=== PATIENT | female | born 1955 | race Two or more races ===

== ENCOUNTER 2020-04-12 11:33 | Inpatient (IN) | payer MEDICARE, OTHER ==
[~2020-04-12] VITALS: Ht 132.1 cm; Wt 38.1 kg
--- NOTE | 2020-04-12 11:45 | NUR ---
ED Nurse Note: Pt walked in from home c/o chills, weakness and diarrhea x 1 week s/p coronary ablation. Pt is a patient of Dr. Chambers and has had loss of appetite x 4 days. Respirations even and unlabored on room air. Vitals stable as documented. A+Ox4, speaking in complete sentences.
--- NOTE | 2020-04-12 12:01 | Emergency Room Report ---
History of Present Illness General Chief Complaint: General Complaint Source: Patient (Keyonna Dobbs M.D.) Present Illness HPI Patient is a 65-year-old female past medical history of atrial fibrillation status post recent ablation on Xarelto who presents to the ER complaining of generalized weakness, abdominal pain, lower back pain and watery diarrhea. Patient states the symptoms of been present for a week. She denies any fever but complains of chills. She denies any chest pain, shortness of breath or cough. She complains of nausea but denies any vomiting. She denies any dysuria or hematuria. Patient states that her primary care physician Dr. Jamil referred her to the emergency room. 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: No (Keyonna Dobbs M.D.) Patient History Reviewed Nursing Documentation: PMH: Agreed; PSxH: Agreed (Keyonna Dobbs M.D.) Nursing Documentation-PMH Past Medical History: No History, Except For (Keyonna Dobbs M.D.) Review of Systems All Other Systems: negative except mentioned in HPI (Keyonna Dobbs M.D.) Physical Exam Vital Signs Date Time Temp Pulse Resp B/P (MAP) Pulse Ox O2 Delivery O2 Flow Rate FiO2 04/12/20 11:38 98.2 87 15 113/74 (87) 97 Room Air Sp02 EP Interpretation: reviewed, normal General Appearance: no apparent distress, alert, GCS 15, non-toxic, thin Head: normocephalic, atraumatic Eyes: bilateral eye normal inspection, bilateral eye PERRL ENT: dry mucus membranes Neck: full range of motion, supple/symm/no masses Respiratory: chest non-tender, rales, speaking full sentences Cardiovascular #1: regular rate, rhythm, no edema Gastrointestinal: other - Mild diffuse abdominal pain with no guarding or rebound Rectal: deferred Genitourinary: no CVA tenderness Musculoskeletal: back normal, normal range of motion, no calf tenderness, gait/station normal, non-tender Neurologic: loom mechanic III-XII nml as tested, oriented x3 Psychiatric: no suicidal/homicidal ideation Skin: no rash Lymphatic: no adenopathy (Keyonna Dobbs M.D.) Medical Decision Making Diagnostic Impression: Primary Impression: CHF (congestive heart failure) Additional Impressions: Diarrhea Weakness ER Course Patient pancultured. Patient's vital signs are stable. Patient's chest x-ray consistent with CHF. Patient had diffuse abdominal pain with diarrhea. Patient pending CT abdomen pelvis. I paged the patient's primary care physician Dr.Re torres. I explained the work-up to him so far. Patient is pending CT results. Patient signed out to Dr. Harris at 1400 to follow-up on the CT results and admission. Laboratory Tests Test 04/12/20 11:55 04/12/20 12:05 04/13/20 04:45 White Blood Count 4.6 K/UL (4.8-10.8) L Pending Red Blood Count 4.65 M/UL (4.20-5.40) Pending Hemoglobin 15.3 G/DL (12.0-16.0) Pending Hematocrit 46.1 % (37.0-47.0) Pending Mean Corpuscular Volume 99 FL (80-99) Pending Mean Corpuscular Hemoglobin 32.8 PG (27.0-31.0) H Pending Mean Corpuscular Hemoglobin Concent 33.1 G/DL (32.0-36.0) Pending Red Cell Distribution Width 12.4 % (11.6-14.8) Pending Platelet Count 143 K/UL (150-450) L Pending Mean Platelet Volume 6.6 FL (6.5-10.1) Pending Neutrophils (%) (Auto) 61.5 % (45.0-75.0) Pending Lymphocytes (%) (Auto) 19.7 % (20.0-45.0) L Pending Monocytes (%) (Auto) 15.0 % (1.0-10.0) H Pending Eosinophils (%) (Auto) 1.5 % (0.0-3.0) Pending Basophils (%) (Auto) 2.3 % (0.0-2.0) H Pending Prothrombin Time 12.1 SEC (9.30-11.50) H Prothrombin Time INR 1.1 (0.9-1.1) Activated Partial Thromboplast Time 35 SEC (23-33) H Sodium Level 135 MMOL/L (136-145) L Pending Potassium Level 3.6 MMOL/L (3.5-5.1) Pending Chloride Level 100 MMOL/L (98-107) Pending Carbon Dioxide Level 27 MMOL/L (21-32) Pending Anion Gap 8 mmol/L (5-15) Blood Urea Nitrogen 6 mg/dL (7-18) L Pending Creatinine 0.9 MG/DL (0.55-1.30) Pending Estimated Glomerular Filtration Rate > 60 mL/min (>60) Pending Glucose Level 90 MG/DL (74-106) Pending Lactic Acid Level 0.80 mmol/L (0.4-2.0) Calcium Level 8.8 MG/DL (8.5-10.1) Pending Magnesium Level 2.1 MG/DL (1.8-2.4) Total Bilirubin 1.6 MG/DL (0.2-1.0) H Pending Direct Bilirubin 0.3 MG/DL (0.0-0.3) Aspartate Amino Transferase (AST) 37 U/L (15-37) Pending Alanine Aminotransferase (ALT) 38 U/L (12-78) Pending Alkaline Phosphatase 57 U/L (46-116) Pending Troponin I 0.001 ng/mL (0.000-0.056) Pending Pro-B-Type Natriuretic Peptide 1047 pg/mL (0-125) H Total Protein 8.3 G/DL (6.4-8.2) H Pending Albumin 3.7 G/DL (3.4-5.0) Pending Globulin 4.6 g/dL Pending Albumin/Globulin Ratio 0.8 (1.0-2.7) L Urine Color Pale yellow Urine Appearance Clear Urine pH 6 (4.5-8.0) Urine Specific [place] 1.005 (1.005-1.035) Urine Protein Negative (NEGATIVE) Urine Glucose (UA) Negative (NEGATIVE) Urine Ketones Negative (NEGATIVE) Urine Blood 3+ (NEGATIVE) H Urine Nitrite Negative (NEGATIVE) Urine Bilirubin Negative (NEGATIVE) Urine Urobilinogen Normal MG/DL (0.0-1.0) Urine Leukocyte Esterase Negative (NEGATIVE) Urine RBC 0-2 /HPF (0 - 2) Urine WBC 0-2 /HPF (0 - 2) Urine Squamous Epithelial Cells Occasional /LPF Urine Bacteria Occasional /HPF (NONE) Microbiology Date/Time Source Procedure Growth Status 04/12/20 11:55 Nasopharynx SARS-CoV-2 RdRp Gene Assay - Final Complete (Keyonna Dobbs M.D.) ER Course Assumed care of the patient from the previous provider at approximately 1430. Please refer to initial note for full history and physical exam. Briefly, 65-year-old female with recent ablation for atrial fibrillation presents with diffuse fatigue, diarrhea. Concern for CHF exacerbation. Patient receiving Lasix. At this time of signout we are awaiting CT results. It shows mild evidence of colitis and interstitial edema. Patient will be admitted to her PMD, Dr. Jamil, for further care. She is in stable condition. Laboratory Tests Test 04/12/20 11:55 04/12/20 12:05 White Blood Count 4.6 K/UL (4.8-10.8) L Red Blood Count 4.65 M/UL (4.20-5.40) Hemoglobin 15.3 G/DL (12.0-16.0) Hematocrit 46.1 % (37.0-47.0) Mean Corpuscular Volume 99 FL (80-99) Mean Corpuscular Hemoglobin 32.8 PG (27.0-31.0) H Mean Corpuscular Hemoglobin Concent 33.1 G/DL (32.0-36.0) Red Cell Distribution Width 12.4 % (11.6-14.8) Platelet Count 143 K/UL (150-450) L Mean Platelet Volume 6.6 FL (6.5-10.1) Neutrophils (%) (Auto) 61.5 % (45.0-75.0) Lymphocytes (%) (Auto) 19.7 % (20.0-45.0) L Monocytes (%) (Auto) 15.0 % (1.0-10.0) H Eosinophils (%) (Auto) 1.5 % (0.0-3.0) Basophils (%) (Auto) 2.3 % (0.0-2.0) H Prothrombin Time 12.1 SEC (9.30-11.50) H Prothrombin Time INR 1.1 (0.9-1.1) Activated Partial Thromboplast Time 35 SEC (23-33) H Sodium Level 135 MMOL/L (136-145) L Potassium Level 3.6 MMOL/L (3.5-5.1) Chloride Level 100 MMOL/L (98-107) Carbon Dioxide Level 27 MMOL/L (21-32) Anion Gap 8 mmol/L (5-15) Blood Urea Nitrogen 6 mg/dL (7-18) L Creatinine 0.9 MG/DL (0.55-1.30) Estimated Glomerular Filtration Rate > 60 mL/min (>60) Glucose Level 90 MG/DL (74-106) Lactic Acid Level 0.80 mmol/L (0.4-2.0) Calcium Level 8.8 MG/DL (8.5-10.1) Magnesium Level 2.1 MG/DL (1.8-2.4) Total Bilirubin 1.6 MG/DL (0.2-1.0) H Direct Bilirubin 0.3 MG/DL (0.0-0.3) Aspartate Amino Transferase (AST) 37 U/L (15-37) Alanine Aminotransferase (ALT) 38 U/L (12-78) Alkaline Phosphatase 57 U/L (46-116) Troponin I 0.001 ng/mL (0.000-0.056) Pro-B-Type Natriuretic Peptide 1047 pg/mL (0-125) H Total Protein 8.3 G/DL (6.4-8.2) H Albumin 3.7 G/DL (3.4-5.0) Globulin 4.6 g/dL Albumin/Globulin Ratio 0.8 (1.0-2.7) L Urine Color Pale yellow Urine Appearance Clear Urine pH 6 (4.5-8.0) Urine Specific [place] 1.005 (1.005-1.035) Urine Protein Negative (NEGATIVE) Urine Glucose (UA) Negative (NEGATIVE) Urine Ketones Negative (NEGATIVE) Urine Blood 3+ (NEGATIVE) H Urine Nitrite Negative (NEGATIVE) Urine Bilirubin Negative (NEGATIVE) Urine Urobilinogen Normal MG/DL (0.0-1.0) Urine Leukocyte Esterase Negative (NEGATIVE) Urine RBC 0-2 /HPF (0 - 2) Urine WBC 0-2 /HPF (0 - 2) Urine Squamous Epithelial Cells Occasional /LPF Urine Bacteria Occasional /HPF (NONE) Microbiology Date/Time Source Procedure Growth Status 04/12/20 11:55 Nasopharynx SARS-CoV-2 RdRp Gene Assay - Final Complete (Frederick Harris MD) EKG Diagnostic Results Troponin ordered: Yes When was troponin ordered?: Apr 12, 2020 EKG Time: 12:14 EP Interpretation: Keyonna Dobbs MD Rate: normal - 86 bpm Rhythm: NSR, other - Sinus rhythm with PVC right axis deviation, incomplete right bundle vania block ST Segments: no acute changes ASA given to the pt in ED: No (Keyonna Dobbs M.D.) Rhythm Strip Diag. Results Rhythm Strip Time: 12:18 EP Interpretation: yes - Keyonna Dobbs MD Rate: 87 bpm Rhythm: NSR, no PVC's, no ectopy (Keyonna Dobbs M.D.) Chest X-Ray Diagnostic Results Chest X-Ray Diagnostic Results : Chest X-Ray Ordered: Yes # of Views/Limited/Complete: 1 View Indication: Shortness of Breath Interpretation: no consolidation, no effusion, no pneumothorax, other - Bilateral vascular congestion Impression: Other - Bilateral vascular congestion Electronically Signed by: Electronically signed by Dr. Frederick Harris MD (Frederick Harris MD) CT/MRI/US Diagnostic Results CT/MRI/US Diagnostic Results : Impression Final Report EXAM: CT Abdomen and Pelvis Without Intravenous Contrast CLINICAL HISTORY: PAIN TECHNIQUE: Axial computed tomographyimages of the abdomen and pelviswithout intravenous contrast. Sagittal and coronal reformatted imageswere created and reviewed. CTDI is 2.9 mGyand DLP is 130.20 mGycm. One or more of the following dose reduction techniqueswere used: automated exposure control, adjustment of the mAand/or kVaccording to patient size, use of iterative reconstruction technique. COMPARISON: No relevant prior studies available. FINDINGS: Lung bases: Subtle peripheral hazydensities in bilateral lower lobes. Heart:Cardiomegaly. ABDOMEN: Liver:Unremarkable. Gallbladder and bile ducts:Unremarkable. No calcified stones. No ductal dilation. Pancreas:Unremarkable. No ductal dilation. Spleen:Unremarkable. No splenomegaly. Adrenals:Unremarkable. No mass. Kidneys and ureters:Unremarkable. No obstructing stones. No hydronephrosis. Stomach and bowel: Mild diffuse colonicwall thickening, concerning for a coli tis. No abnormally distended loops of small bowel. GE junction and stomach appear unremarkable. PELVIS: Appendix:No findings to suggest acute appendicitis. Bladder:Unremarkable. No stones. Reproductive: The uterus and ovaries have an unremarkable noncontrast appearance. ABDOMEN and PELVIS: Intraperitoneal space:Unremarkable. No free air. No significant fluid collection. Bones/joints:No acute fracture. No dislocation. Soft tissues:Unremarkable. Vasculature:Unremarkable. No abdominal aortic aneurysm. Lymph nodes:Unremarkable. No enlarged lymph nodes. IMPRESSION: 1. Mild diffuse colonicwall thickening, concerning for a colitis. No adjacent inflammatorystranding, free air, or fluid collection. No bowel obstruction. 2. Cardiomegaly. 3. Subtle peripheral hazydensities in bilateral lower lobes. This is nonspecific and mayrepresent mild pulmonaryinterstitial edema or pneumonitis. Radiologist: Jt Marley MD Electronically Signed: 04/12/20 14:35 (Frederick Harris MD) Last Vital Signs Date Time Temp Pulse Resp B/P (MAP) Pulse Ox O2 Delivery O2 Flow Rate FiO2 04/12/20 11:38 98.2 87 15 113/74 (87) 97 Room Air (Keyonna Dobbs M.D.) Disposition: ADMITTED INPATIENT Condition: Stable Referrals: Flako Jamil MD (PCP) Additional Instructions: Please note that this report is being documented using DRAGON technology. This can lead to erroneous entry secondary to incorrect interpretation by the dictating instrument. Keyonna Dobbs M.D. Apr 12, 2020 12:00 Frederick Harris MD Apr 12, 2020 15:01
[2020-04-12 12:22] VITALS: BP 124/77
[2020-04-12 12:29] LABS: BASOPHILS % (AUTO) 2.3 % (0.0-2.0); EOSINOPHILS % (AUTO) 1.5 % (0.0-3.0); HEMATOCRIT 46.1 % (37.0-47.0); HEMOGLOBIN 15.3 G/DL (12.0-16.0); LYMPHOCYTES % (AUTO) 19.7 % (20.0-45.0); MEAN CORPUSCULAR VOLUME 99 FL (80-99); NEUTROPHILS % (AUTO) 61.5 % (45.0-75.0); PLATELET COUNT 143 K/UL (150-450); RED BLOOD COUNT 4.65 M/UL (4.20-5.40); RED CELL DISTRIBUTION WIDTH 12.4 % (11.6-14.8); WHITE BLOOD COUNT 4.6 K/UL (4.8-10.8)
[2020-04-12 12:30] LABS: APPEARANCE,URINE CLEAR; BILIRUBIN, URINE NEGATIVE (NEGATIVE); COLOR,URINE PALE YELLOW; GLUCOSE, URINE (UA) NEGATIVE (NEGATIVE); KETONES,URINE NEGATIVE (NEGATIVE); LEUKOCYTE ESTERASE ,URINE NEGATIVE (NEGATIVE); NITRITE,URINE NEGATIVE (NEGATIVE); PH,URINE 6 (4.5-8.0); PROTEIN,URINE NEGATIVE (NEGATIVE); UROBILINOGEN,URINE NORMAL MG/DL (0.0-1.0)
[2020-04-12 12:34] LABS: INR 1.1 (0.9-1.1)
[2020-04-12 12:41] LABS: ANION GAP 8 mmol/L (5-15); BLOOD UREA NITROGEN 6 mg/dL (7-18); CALCIUM 8.8 MG/DL (8.5-10.1); CARBON DIOXIDE 27 MMOL/L (21-32); CHLORIDE 100 MMOL/L (98-107); CREATININE 0.9 MG/DL (0.55-1.30); POTASSIUM 3.6 MMOL/L (3.5-5.1); SODIUM 135 MMOL/L (136-145)
[2020-04-12 12:56] LABS: ALANINE AMINOTRANSFERASE 38 U/L (12-78); ALBUMIN 3.7 G/DL (3.4-5.0); ALBUMIN/GLOBULIN RATIO 0.8 (1.0-2.7); ALKALINE PHOSPHATASE 57 U/L (46-116); ASPARTATE AMINO TRANSFERASE 37 U/L (15-37); BILIRUBIN,TOTAL 1.6 MG/DL (0.2-1.0)
[2020-04-12 12:57] LABS: BILIRUBIN,DIRECT 0.3 MG/DL (0.0-0.3)
--- NOTE | 2020-04-12 13:10 | NUR ---
ED Nurse Note: pt in radiology
--- NOTE | 2020-04-12 13:20 | NUR ---
ED Nurse Note: pt back from radiology. no acute distress noted.
--- NOTE | 2020-04-12 13:39 | Diagnostic Imaging Report ---
EXAM: XR Chest, 1 View CLINICAL HISTORY: PAIN TECHNIQUE: Frontal view of the chest. COMPARISON: No relevant prior studies available. FINDINGS: Lungs: Pulmonary vascular congestion and possible mild perihilar pulmonary edema. No focal consolidation. Pleural space: Unremarkable. The costophrenic angles are sharp. No visible pneumothorax. Heart: Cardiomegaly. Mediastinum: Unremarkable. Bones/joints: Unremarkable. Tubes, lines and devices: Telemetry leads overlie the thorax. IMPRESSION: 1. Pulmonary vascular congestion and possible mild perihilar pulmonary edema. 2. Cardiomegaly.
[2020-04-12] MEDS: Aspirin Baby 81mg ORAL ONE ×2 (14:00→14:23)
[2020-04-12 14:20] VITALS: BP 131/74
--- NOTE | 2020-04-12 14:33 | NUR ---
ED Nurse Note: pt did not want to take aspirin as she is on xarelto. ED MD Aware. He said to hold aspirin.
--- NOTE | 2020-04-12 14:35 | Diagnostic Imaging Report ---
EXAM: CT Abdomen and Pelvis Without Intravenous Contrast CLINICAL HISTORY: PAIN TECHNIQUE: Axial computed tomography images of the abdomen and pelvis without intravenous contrast. Sagittal and coronal reformatted images were created and reviewed. CTDI is 2.9 mGy and DLP is 130.20 mGy-cm. One or more of the following dose reduction techniques were used: automated exposure control, adjustment of the mA and/or kV according to patient size, use of iterative reconstruction technique. COMPARISON: No relevant prior studies available. FINDINGS: Lung bases: Subtle peripheral hazy densities in bilateral lower lobes. Heart: Cardiomegaly. ABDOMEN: Liver: Unremarkable. Gallbladder and bile ducts: Unremarkable. No calcified stones. No ductal dilation. Pancreas: Unremarkable. No ductal dilation. Spleen: Unremarkable. No splenomegaly. Adrenals: Unremarkable. No mass. Kidneys and ureters: Unremarkable. No obstructing stones. No hydronephrosis. Stomach and bowel: Mild diffuse colonic wall thickening, concerning for a colitis. No abnormally distended loops of small bowel. GE junction and stomach appear unremarkable. PELVIS: Appendix: No findings to suggest acute appendicitis. Bladder: Unremarkable. No stones. Reproductive: The uterus and ovaries have an unremarkable noncontrast appearance. ABDOMEN and PELVIS: Intraperitoneal space: Unremarkable. No free air. No significant fluid collection. Bones/joints: No acute fracture. No dislocation. Soft tissues: Unremarkable. Vasculature: Unremarkable. No abdominal aortic aneurysm. Lymph nodes: Unremarkable. No enlarged lymph nodes. IMPRESSION: 1. Mild diffuse colonic wall thickening, concerning for a colitis. No adjacent inflammatory stranding, free air, or fluid collection. No bowel obstruction. 2. Cardiomegaly. 3. Subtle peripheral hazy densities in bilateral lower lobes. This is nonspecific and may represent mild pulmonary interstitial edema or pneumonitis.
--- NOTE | 2020-04-12 16:02 | NUR ---
ED Nurse Note: Report given to ORQUIDEA Vasquez on 2E
--- NOTE | 2020-04-12 16:10 | NUR ---
ED Nurse Note: pt transferred safely to 2E on the monitor. Pt transferred with all belongings including 99$ valdivia and cell phone.
[2020-04-12] MEDS ORDERED: XARELTO10 MG ORAL (16:39)
[2020-04-12 17:33] VITALS: BP 101/60
[2020-04-12] MEDS: D5 1/2NS 1,000 ML IV SCH (18:21)
[2020-04-12] MEDS: Xarelto 10mg tab ORAL SCH (18:24)
--- NOTE | 2020-04-12 19:36 | NUR ---
NURSE HAND-OFF REPORT: Important Events on Shift: Admitted patient, NPO x meds, Flagyl tid, pain management, nausea medication prn, IV hydration. Patient s/p cardiac ablation approx. one week ago. Consults [facility]. Gadiel Collins. Patient Status: Stable Diet: NPO x meds. Pending Orders: am labs Pending Results/Labs:am. labs Pending MD notification:N/A Latest Vital Signs: Temperature 98.1 , Pulse 96 , B/P 101 /60 , Respiratory Rate 19 , O2 SAT 94 , Room Air, O2 Flow Rate . Vital Sign Comment: Stable, low blood pressure. Hold IV lasix if SBP<150. EKG Rhythm: Sinus Rhythm Rhythm change?: N MD Notified?: - MD Response: Latest Beauchamp Fall Score: 20 Fall Risk: Low Risk Safety Measures: Call light Within Reach, Bed Alarm Zone 2, Side Rails Side Rails x2, Bed position Low and Locked. Fall Precautions: Report given to Lavinia Cali RN.
--- NOTE | 2020-04-12 19:54 | NUR ---
NURSE NOTES: Received patient in bed, awake, alert, oriented x4, able to make he needs known, IV site is clean dry and intact, patient is able to ambulate with steady gate, patient is NPO except meds, call light is within reach, bed is lowered, locked, alarm is on, will continue to monitor for comfort and safety.
[2020-04-12 20:00] VITALS: BP 118/74
--- NOTE | 2020-04-12 20:08 | Infectious Diseases Prog Note ---
Assessment/Plan Problems: (1) S/P ablation of atrial fibrillation Assessment & Plan: now with chills , rule out sepsis , will start vancomycin and cefepime empirically pending blood culture from ED (2) Chills Assessment & Plan: Sepsis VS COVID 19 viral infection , send PCR test for COVID to confirm, and start vancomycin with cefepime empirically pending blood culture . place patient in enhanced droplets isolation (3) Diarrhea Assessment & Plan: Bacterial VS viral , send stool culture, continue metronidazole pending C diff toxin , screening for COVID (4) Weakness Assessment & Plan: suspect due to the above Subjective Allergies: Coded Allergies: No Known Allergies (Unverified , 04/12/20) Objective Last 24 Hour Vital Signs Date Time Temp Pulse Resp B/P (MAP) Pulse Ox O2 Delivery O2 Flow Rate FiO2 04/12/20 17:33 98.1 96 19 101/60 (74) 94 04/12/20 17:15 89 04/12/20 16:10 97.9 84 16 139/71 99 Room Air 04/12/20 14:20 97.6 92 15 131/74 98 Room Air 04/12/20 12:22 98.2 108 15 124/77 97 Room Air 04/12/20 11:45 81 18 Room Air 04/12/20 11:38 98.2 87 15 113/74 (87) 97 Room Air Height (Feet): 4 Height (Inches): 8.00 Weight (Pounds): 85 Microbiology Date/Time Source Procedure Growth Status 04/12/20 11:55 Nasopharynx SARS-CoV-2 RdRp Gene Assay - Final Complete Laboratory Tests Test 04/12/20 11:55 04/12/20 12:05 White Blood Count 4.6 K/UL (4.8-10.8) L Red Blood Count 4.65 M/UL (4.20-5.40) Hemoglobin 15.3 G/DL (12.0-16.0) Hematocrit 46.1 % (37.0-47.0) Mean Corpuscular Volume 99 FL (80-99) Mean Corpuscular Hemoglobin 32.8 PG (27.0-31.0) H Mean Corpuscular Hemoglobin Concent 33.1 G/DL (32.0-36.0) Red Cell Distribution Width 12.4 % (11.6-14.8) Platelet Count 143 K/UL (150-450) L Mean Platelet Volume 6.6 FL (6.5-10.1) Neutrophils (%) (Auto) 61.5 % (45.0-75.0) Lymphocytes (%) (Auto) 19.7 % (20.0-45.0) L Monocytes (%) (Auto) 15.0 % (1.0-10.0) H Eosinophils (%) (Auto) 1.5 % (0.0-3.0) Basophils (%) (Auto) 2.3 % (0.0-2.0) H Prothrombin Time 12.1 SEC (9.30-11.50) H Prothromb Time International Ratio 1.1 (0.9-1.1) Activated Partial Thromboplast Time 35 SEC (23-33) H Sodium Level 135 MMOL/L (136-145) L Potassium Level 3.6 MMOL/L (3.5-5.1) Chloride Level 100 MMOL/L (98-107) Carbon Dioxide Level 27 MMOL/L (21-32) Anion Gap 8 mmol/L (5-15) Blood Urea Nitrogen 6 mg/dL (7-18) L Creatinine 0.9 MG/DL (0.55-1.30) Estimat Glomerular Filtration Rate > 60 mL/min (>60) Glucose Level 90 MG/DL (74-106) Lactic Acid Level 0.80 mmol/L (0.4-2.0) Calcium Level 8.8 MG/DL (8.5-10.1) Magnesium Level 2.1 MG/DL (1.8-2.4) Total Bilirubin 1.6 MG/DL (0.2-1.0) H Direct Bilirubin 0.3 MG/DL (0.0-0.3) Aspartate Amino Transf (AST/SGOT) 37 U/L (15-37) Alanine Aminotransferase (ALT/SGPT) 38 U/L (12-78) Alkaline Phosphatase 57 U/L (46-116) Troponin I 0.001 ng/mL (0.000-0.056) Pro-B-Type Natriuretic Peptide 1047 pg/mL (0-125) H Total Protein 8.3 G/DL (6.4-8.2) H Albumin 3.7 G/DL (3.4-5.0) Globulin 4.6 g/dL Albumin/Globulin Ratio 0.8 (1.0-2.7) L Urine Color Pale yellow Urine Appearance Clear Urine pH 6 (4.5-8.0) Urine Specific [place] 1.005 (1.005-1.035) Urine Protein Negative (NEGATIVE) Urine Glucose (UA) Negative (NEGATIVE) Urine Ketones Negative (NEGATIVE) Urine Blood 3+ (NEGATIVE) H Urine Nitrite Negative (NEGATIVE) Urine Bilirubin Negative (NEGATIVE) Urine Urobilinogen Normal MG/DL (0.0-1.0) Urine Leukocyte Esterase Negative (NEGATIVE) Urine RBC 0-2 /HPF (0 - 2) Urine WBC 0-2 /HPF (0 - 2) Urine Squamous Epithelial Cells Occasional /LPF Urine Bacteria Occasional /HPF (NONE) Current Medications Medications (Trade) Dose Ordered Sig/Marquis Route PRN Reason Start Time Stop Time Status Last Admin Dose Admin Cefepime HCl 2 gm/ Dextrose 55 ml @ 110 mls/hr EVERY 12 HOURS IVPB 04/12/20 21:00 04/19/20 20:59 UNV Dextrose/Sodium Chloride 1,000 ml @ 75 mls/hr [id number] IV 04/12/20 17:45 05/12/20 17:44 04/12/20 18:21 Furosemide (Lasix) 40 mg DAILY IV 04/13/20 09:00 05/13/20 08:59 Metronidazole 100 ml @ 100 mls/hr Q8HR IVPB 04/12/20 20:00 04/19/20 19:59 Morphine Sulfate (Morphine Sulfate) 1 mg Q6H PRN IVP For Pain 4-10 04/12/20 18:00 04/19/20 17:59 Ondansetron HCl (Zofran) 4 mg Q6H PRN IVP Nausea & Vomiting 04/12/20 17:45 05/12/20 17:44 Pantoprazole (Protonix) 40 mg DAILY IVP 04/13/20 09:00 05/13/20 08:59 Rivaroxaban (Xarelto) 20 mg QPM ORAL 04/12/20 18:00 07/11/20 17:59 04/12/20 18:24 Vancomycin HCl (Vanco pharmacy to dose) 1 ea DAILY PRN MISC Per rx protocol 04/12/20 20:00 05/12/20 19:59 Brandt Santizo M.D. Apr 12, 2020 20:08
[2020-04-12] MEDS ORDERED: Cefepime HCl 2 GM in D5W 55 ML IVPB SCH (21:00)
[2020-04-12 21:06] VITALS: BP 115/74
[2020-04-12] MEDS ORDERED: Vancomycin 1gm/D5W 275ml IVPB ONE ×2 (22:00)
[2020-04-12] MEDS: Morphine Sulfate 2mg/ml Inj(IV/IM USE ONLY) IVP PRN (22:00)
[2020-04-12 23:53] VITALS: BP 127/74
[2020-04-13 04:00] VITALS: BP 127/74
[2020-04-13] MEDS: Morphine Sulfate 2mg/ml Inj(IV/IM USE ONLY) IVP PRN (04:56)
[2020-04-13] MEDS: D5 1/2NS 1,000 ML IV SCH (05:24)
--- NOTE | 2020-04-13 06:56 | NUR ---
NURSE HAND-OFF REPORT: Important Events on Shift: NPO, Covid test is done and will be sent out Patient Status: Full code Diet: NPO Pending Orders: Pending Results/Labs: Pending MD notification: Latest Vital Signs: Temperature 98.7 , Pulse 95 , B/P 127 /74 , Respiratory Rate 18 , O2 SAT 98 , Room Air, O2 Flow Rate . Vital Sign Comment: EKG Rhythm: Sinus Rhythm Rhythm change?: N MD Notified?: - MD Response: Latest Beauchamp Fall Score: 45 Fall Risk: High Risk Safety Measures: Call light Within Reach, Bed Alarm Zone 1, Side Rails Side Rails x1, Bed position Low and Locked. Fall Precautions: Patient Fall Education Report given to ORQUIDEA Lino
[2020-04-13 07:06] LABS: BASOPHILS % (AUTO) 1.2 % (0.0-2.0); EOSINOPHILS % (AUTO) 1.7 % (0.0-3.0); HEMATOCRIT 40.1 % (37.0-47.0); HEMOGLOBIN 13.5 G/DL (12.0-16.0); LYMPHOCYTES % (AUTO) 19.9 % (20.0-45.0); MEAN CORPUSCULAR VOLUME 97 FL (80-99); MONOCYTES % (AUTO) 18.3 % (1.0-10.0); PLATELET COUNT 146 K/UL (150-450); RED BLOOD COUNT 4.12 M/UL (4.20-5.40); WHITE BLOOD COUNT 4.4 K/UL (4.8-10.8)
[2020-04-13 07:28] LABS: ALANINE AMINOTRANSFERASE 26 U/L (12-78); ALBUMIN 2.8 G/DL (3.4-5.0); ALBUMIN/GLOBULIN RATIO 0.8 (1.0-2.7); ALKALINE PHOSPHATASE 52 U/L (46-116); ANION GAP 8 mmol/L (5-15); ASPARTATE AMINO TRANSFERASE 30 U/L (15-37); BILIRUBIN,TOTAL 1.1 MG/DL (0.2-1.0); BLOOD UREA NITROGEN 6 mg/dL (7-18); CALCIUM 8.2 MG/DL (8.5-10.1); CARBON DIOXIDE 27 MMOL/L (21-32); CHLORIDE 102 MMOL/L (98-107); CREATININE 0.8 MG/DL (0.55-1.30); POTASSIUM 3.4 MMOL/L (3.5-5.1); SODIUM 137 MMOL/L (136-145)
[2020-04-13 07:31] LABS: BILIRUBIN,DIRECT 0.2 MG/DL (0.0-0.3)
[2020-04-13 08:00] VITALS: BP 95/64
--- NOTE | 2020-04-13 08:03 | NUR ---
NURSE NOTES: Report received from Lavinia HEARD. Patient seen on rounds, AxOx4, on room air, no signs of distress or pain. Afebrile. PIV on right AC patent and infusing D5 1/2 NS @ 75ml/hr. Pt is ambulatory, but weak. Dr. Jamil saw patient on rounds and discontinued IV Cefepime and Vanco, says pt refusing these antibiotics. Will notify Dr. Blanco. Received orders to advance diet as tolerated and start on clear liquids. Orders noted and carried out. Bed low and locked, siderails up x2, call light placed within reach and instructed to call nurse for assistance. Will continue with plan of care.
[2020-04-13] MEDS: Pantoprazole Inj IVP SCH (09:12)
--- NOTE | 2020-04-13 09:46 | History & Physical ---
History and Physical History & Physicial seen and examined. Full Dictation completed. Flako Jamil MD Apr 13, 2020 09:46
--- NOTE | 2020-04-13 09:47 | General Progress Note ---
Subjective Allergies: Coded Allergies: No Known Allergies (Unverified , 04/12/20) Objective Last 24 Hour Vital Signs Date Time Temp Pulse Resp B/P (MAP) Pulse Ox O2 Delivery O2 Flow Rate FiO2 04/13/20 08:00 97.1 66 18 95/64 (74) 98 04/13/20 05:31 98.7 04/13/20 04:00 98.8 78 18 127/74 (91) 98 04/13/20 04:00 95 04/13/20 00:00 81 04/12/20 23:53 98.7 74 18 127/74 (91) 97 04/12/20 22:32 97.8 04/12/20 21:06 97.8 74 19 115/74 (88) 98 04/12/20 21:00 Room Air 04/12/20 20:00 97.8 74 18 118/74 (89) 95 04/12/20 17:33 98.1 96 19 101/60 (74) 94 04/12/20 17:15 89 04/12/20 16:10 97.9 84 16 139/71 99 Room Air 04/12/20 14:20 97.6 92 15 131/74 98 Room Air 04/12/20 12:22 98.2 108 15 124/77 97 Room Air 04/12/20 11:45 81 18 Room Air 04/12/20 11:38 98.2 87 15 113/74 (87) 97 Room Air Intake and Output 04/12/20 04/13/20 19:00 07:00 Intake Total 1075 ml 450 ml Balance 1075 ml 450 ml Intake IV Total 1075 ml 450 ml # Voids 1 Laboratory Tests 04/12/20 11:55: White Blood Count 4.6L, Red Blood Count 4.65, Hemoglobin 15.3, Hematocrit 46.1, Mean Corpuscular Volume 99, Mean Corpuscular Hemoglobin 32.8H, Mean Corpuscular Hemoglobin Concent 33.1, Red Cell Distribution Width 12.4, Platelet Count 143L, Mean Platelet Volume 6.6, Neutrophils (%) (Auto) 61.5, Lymphocytes (%) (Auto) 19.7L, Monocytes (%) (Auto) 15.0H, Eosinophils (%) (Auto) 1.5, Basophils (%) (Auto) 2.3H, Prothrombin Time 12.1H, Prothromb Time International Ratio 1.1, Activated Partial Thromboplast Time 35H, Sodium Level 135L, Potassium Level 3.6, Chloride Level 100, Carbon Dioxide Level 27, Anion Gap 8, Blood Urea Nitrogen 6L , Creatinine 0.9, Estimat Glomerular Filtration Rate > 60, Glucose Level 90, Lactic Acid Level 0.80, Calcium Level 8.8, Magnesium Level 2.1, Total Bilirubin 1.6H, Direct Bilirubin 0.3, Aspartate Amino Transf (AST/SGOT) 37, Alanine Aminotransferase (ALT/SGPT) 38, Alkaline Phosphatase 57, Troponin I 0.001, Pro-B-Type Natriuretic Peptide 1047H, Total Protein 8.3H, Albumin 3.7, Globulin 4.6, Albumin/Globulin Ratio 0.8L 04/12/20 12:05: Urine Color Pale yellow, Urine Appearance Clear, Urine pH 6, Urine Specific [place] 1.005, Urine Protein Negative, Urine Glucose (UA) Negative, Urine Ketones Negative, Urine Blood 3+H, Urine Nitrite Negative, Urine Bilirubin Negative, Urine Urobilinogen Normal, Urine Leukocyte Esterase Negative, Urine RBC 0-2, Urine WBC 0-2, Urine Squamous Epithelial Cells Occasional, Urine Bacteria Occasional 04/13/20 04:45: White Blood Count 4.4L, Red Blood Count 4.12L, Hemoglobin 13.5, Hematocrit 40.1, Mean Corpuscular Volume 97, Mean Corpuscular Hemoglobin 32.7H, Mean Corpuscular Hemoglobin Concent 33.6, Red Cell Distribution Width 12.0, Platelet Count 146L, Mean Platelet Volume 6.6, Neutrophils (%) (Auto) 59.0, Lymphocytes (%) (Auto) 19.9L, Monocytes (%) (Auto) 18.3H, Eosinophils (%) (Auto) 1.7, Basophils (%) (Auto) 1.2, Sodium Level 137, Potassium Level 3.4L, Chloride Level 102, Carbon Dioxide Level 27, Anion Gap 8, Blood Urea Nitrogen 6L, Creatinine 0.8, Estimat Glomerular Filtration Rate > 60, Glucose Level 87, Calcium Level 8.2L, Total Bilirubin 1.1H, Direct Bilirubin 0.2, Aspartate Amino Transf (AST/SGOT) 30, Alanine Aminotransferase (ALT/SGPT) 26, Alkaline Phosphatase 52, Troponin I 0.009, Total Protein 6.5, Albumin 2.8L, Globulin 3.7, Albumin/Globulin Ratio 0.8L Height (Feet): 4 Height (Inches): 8.00 Weight (Pounds): 85 Assessment/Plan Assessment/Plan: Full Dictation completed. A/P: 1- Sub Acute colitis Plan: DC Lasix start clear liquid diet Patient refusing antibiotic. I did modify antibiotic, pending ID assessment. GI input pending Flako Jamil MD Apr 13, 2020 09:47
--- NOTE | 2020-04-13 10:59 | History and Physical Report ---
DATE OF ADMISSION: 04/12/2020 SOURCE OF INFORMATION: The patient and EMR. HISTORY OF PRESENT ILLNESS: The patient is a pleasant 65-year-old female with history of IBS who presented with worsening of abdominal pain, diarrhea for the last couple of days. The patient reported that she had a cardiac ablation procedure about a week ago and since then has been feeling diffuse chills, diarrhea, abdominal pain. The patient denies any fever. Denies any cough. The patient reported negative COVID test an outpatient. At the time of evaluation, the patient denies any blood in the stool. Denies any fever or chills. Denies any cough. REVIEW OF SYSTEMS: All 12 elements of review of systems reviewed. Pertinent positive and negative as above. ALLERGIES: NKDA. FAMILY HISTORY: Reviewed and noncontributory. SOCIAL HISTORY: Denies history of illicit drug abuse, smoking, or alcohol abuse. The patient is a single. MEDICATIONS: Current hospital medications including, but not limited to, Lasix, Xarelto, Zofran, Flagyl. PAST MEDICAL AND SURGICAL HISTORY: Including IBS, paroxysmal atrial fibrillation. PHYSICAL EXAMINATION: VITAL SIGNS: Blood pressure 113/70, temperature 98.2, pulse oximetry 98% on room air, and heart rate 74, respiratory rate 18. HEAD AND NECK: Atraumatic and normocephalic. CHEST: Clear to auscultation. HEART: S1 and S2. Regular rate and rhythm. ABDOMEN: Tenderness on deep palpation. MUSCULOSKELETAL: No gross lateralized motor deficit. NEUROLOGIC: The patient is awake, alert, oriented x3. LABORATORY DATA: Dated April 12, 2020 shows WBC 4.6, platelets 143. Sodium of 135, potassium 3.6, BUN 6, creatinine 0.9. ASSESSMENT AND PLAN: 1. Subacute colitis with prior history of IBS/IBD. 2. Thrombocytopenia. 3. Paroxysmal atrial fibrillation. 4. leukopenia. 5. GI and DVT prophylaxis. PLAN OF CARE: Cardiology, Infectious Diseases have been consulted. We will start the patient on empiric antibiotic treatment. Pending cultures. Flako Jamil M.D. DR: Rikki JOB#: [id number] CC: BENJIE
--- NOTE | 2020-04-13 11:15 | Consultation ---
DATE OF CONSULTATION: 04/13/2020 PULMONARY CONSULTATION HISTORY OF PRESENT ILLNESS: This is a 65-year-old female with a history of atrial fibrillation who has undergone recent ablation. She presented to the hospital with weakness and abdominal pain. She also report lower back pain and diarrhea. It has been ongoing for about a week. The patient was seen and evaluated. She underwent a rapid COVID gene assay which was negative. The patient was admitted to the hospital for her ongoing symptomatology. She also underwent a chest x-ray which showed evidence of mild pulmonary edema as well as cardiomegaly. She underwent imaging of her abdomen, which shows evidence for mild colitis. No other pathology was noted. The patient had laboratory workup which showed mild leukopenia, mild hypokalemia, otherwise normal data. At this time, the patient states she has improved. PAST MEDICAL HISTORY: Atrial fibrillation status post ablation. PAST SURGICAL HISTORY: None. CURRENT MEDICATIONS: Flagyl, morphine, Protonix, Zofran, Xarelto. REVIEW OF SYSTEMS: The patient denies any headaches, hematemesis, melena, hematochezia, night sweats, or weight loss. PHYSICAL EXAMINATION: GENERAL: Reveals a 65-year-old female. VITAL SIGNS: Blood pressure is 95/60, heart rate 64, respiratory rate 18, O2 saturation 98% on room air. HEENT: Unremarkable. CHEST: Clear breath sounds bilaterally. ABDOMEN: Soft. EXTREMITIES: There is no edema. LABORATORY DATA: Lab testing discussed above. Imaging discussed above. IMPRESSION: 1. Mild pulmonary edema. 2. Chronic atrial fibrillation, status post ablation. 3. Chronic anticoagulation. 4. Colitis. 5. Pulmonary edema. DISCUSSION: Admit to the hospital. Currently saturating well on room air. Hold off on diuretics. Replace potassium. Antibiotics per Dr. Jamil. We will follow. Osvaldo Warren M.D. DR: Tom JOB#: [id number] CC:
[2020-04-13 12:00] VITALS: BP 111/70
--- NOTE | 2020-04-13 12:42 | General Progress Note ---
Subjective ROS Limited/Unobtainable: Yes Allergies: Coded Allergies: No Known Allergies (Unverified , 04/12/20) Objective Last 24 Hour Vital Signs Date Time Temp Pulse Resp B/P (MAP) Pulse Ox O2 Delivery O2 Flow Rate FiO2 04/13/20 09:00 Room Air 04/13/20 08:00 97.1 66 18 95/64 (74) 98 04/13/20 08:00 85 04/13/20 05:31 98.7 04/13/20 04:00 98.8 78 18 127/74 (91) 98 04/13/20 04:00 95 04/13/20 00:00 81 04/12/20 23:53 98.7 74 18 127/74 (91) 97 04/12/20 22:32 97.8 04/12/20 21:06 97.8 74 19 115/74 (88) 98 04/12/20 21:00 Room Air 04/12/20 20:00 97.8 74 18 118/74 (89) 95 04/12/20 17:33 98.1 96 19 101/60 (74) 94 04/12/20 17:15 89 04/12/20 16:10 97.9 84 16 139/71 99 Room Air 04/12/20 14:20 97.6 92 15 131/74 98 Room Air Intake and Output 04/12/20 04/13/20 19:00 07:00 Intake Total 1075 ml 450 ml Balance 1075 ml 450 ml IV Total 1075 ml 450 ml # Voids 1 Laboratory Tests 04/13/20 04:45: White Blood Count 4.4L, Red Blood Count 4.12L, Hemoglobin 13.5, Hematocrit 40.1, Mean Corpuscular Volume 97, Mean Corpuscular Hemoglobin 32.7H, Mean Corpuscular Hemoglobin Concent 33.6, Red Cell Distribution Width 12.0, Platelet Count 146L, Mean Platelet Volume 6.6, Neutrophils (%) (Auto) 59.0, Lymphocytes (%) (Auto) 19.9L, Monocytes (%) (Auto) 18.3H, Eosinophils (%) (Auto) 1.7, Basophils (%) (Auto) 1.2, Sodium Level 137, Potassium Level 3.4L, Chloride Level 102, Carbon Dioxide Level 27, Anion Gap 8, Blood Urea Nitrogen 6L, Creatinine 0.8, Estimat Glomerular Filtration Rate > 60, Glucose Level 87, Calcium Level 8.2L, Total Bilirubin 1.1H, Direct Bilirubin 0.2, Aspartate Amino Transf (AST/SGOT) 30, Alanine Aminotransferase (ALT/SGPT) 26, Alkaline Phosphatase 52, Troponin I 0.009, Total Protein 6.5, Albumin 2.8L, Globulin 3.7, Albumin/Globulin Ratio 0.8L 04/13/20 11:04: Cortisol AM Sample [Pending] Height (Feet): 4 Height (Inches): 8.00 Weight (Pounds): 85 General Appearance: no apparent distress EENT: normal ENT inspection Neck: supple Cardiovascular: normal rate Respiratory/Chest: decreased breath sounds Abdomen: hypoactive bowel sounds, tender Extremities: non-tender Assessment/Plan Problem List: (1) Colitis ICD Codes: K52.9 - Noninfective gastroenteritis and colitis, unspecified SNOMED: 51419359 (2) Chills ICD Codes: R68.83 - Chills (without fever) SNOMED: 84598651 (3) CHF (congestive heart failure) ICD Codes: I50.9 - Heart failure, unspecified SNOMED: 31699863 (4) Weakness ICD Codes: R53.1 - Weakness SNOMED: 77001531 (5) Diarrhea ICD Codes: R19.7 - Diarrhea, unspecified SNOMED: 70190239 (6) S/P ablation of atrial fibrillation ICD Codes: Z98.890 - Other specified postprocedural states; Z86.79 - Personal history of other diseases of the circulatory system SNOMED: 621532330, 652374899, 072299671, 867570822 Assessment/Plan: fu stool studies clears plan colonoscopy for tomorrow Matthias Collins MD Apr 13, 2020 12:42
--- NOTE | 2020-04-13 13:44 | NUR ---
NURSE NOTES: Consent obtained for colonoscopy procedure tomorrow. Signed by patient and placed in chart.
--- NOTE | 2020-04-13 15:15 | Consultation ---
DATE OF CONSULTATION: 04/12/2020 INFECTIOUS DISEASE CONSULTATION CONSULTING PHYSICIAN: Brandt Blanco MD. REFERRING PHYSICIAN: Flako Jamil MD. REASON FOR CONSULTATION: Chills, diarrhea, colitis with recent AFib ablation, possible sepsis. Recommendation for antibiotics treatment. HISTORY OF PRESENT ILLNESS: The patient is a 65-year-old female with no significant past medical history except atrial fibrillation, which she had recent ablation for seven days ago and was started on Xarelto, presented to [facility] emergency room complaining of abdominal pain, generalized weakness, low back pain, and watery diarrhea. The patient's symptom has been going on for at least a week. Her symptom has been associated with nausea, but no vomiting. The patient denied any recent travel or sick contact, she denied any recent COVID-19 exposure. In the emergency room, the patient's vitals show temperature of 98.2, saturating 97% on room air with blood pressure of 113/74. Her laboratory work showed normal WBC, but elevated lymphocyte ratio. Her serum creatinine was normal and her urinalysis did not show any infection. The patient had a chest x-ray, which showed cardiomegaly with mild congestion, CT scan of the abdomen and pelvis showed mild colitis. The patient had rapid screening test for COVID-19 with gene assay the result of which was negative, so she was admitted to the hospital for further evaluation and management. Infectious Disease consultation was requested for antibiotics treatment and further care. REVIEW OF SYSTEMS: A 14-point of system reviewed were all negative apart from the one I mentioned above in my H and P. PAST MEDICAL HISTORY: Significant for atrial fibrillation, status post ablation a week ago. PAST SURGICAL HISTORY: She had atrial fibrillation ablation a week ago. FAMILY HISTORY: Not contributory. SOCIAL HISTORY: The patient lives at home with family. Denied using any drugs, tobacco, or alcohol. She is unemployed at this time. ALLERGIES: No known drug allergies. MEDICATIONS: She is on Xarelto, morphine and started on metronidazole for colitis. PHYSICAL EXAMINATION: VITAL SIGNS: Temperature 97.8, pulse 74, respirations 18, blood pressure 118/74. Saturation 95% on room air. GENERAL: Middle-aged female, lying in bed, awake and alert, not in acute distress. HEENT: Normocephalic and atraumatic. Pupils reactive to light equally. Moist oral mucosa. No exudate or thrush. NECK: Supple. No lymphadenopathy. CARDIOVASCULAR: Regular rate and rhythm. No murmur. No gallop. LUNGS: Clear bilaterally. No wheezing or rhonchi. Diminished breathing sounds at the bases. ABDOMEN: Soft, nontender, and nondistended. Normal bowel sounds. No hepatosplenomegaly or ascites. EXTREMITIES: No edema or cyanosis. No clubbing. SKIN: No rash. No hives. No ulceration. NEUROLOGIC: Nonfocal with normal sensation. LABORATORY DATA: Labs showed white count of 4.6, hemoglobin of 15.3, platelet count of 143,000. BUN of 6, creatinine of 0.8. AST of 30, ALT of 26. Urinalysis was negative for leukocyte esterase and nitrite. MICROBIOLOGY: SARS COVID-19 rapid gene assay test was negative. IMAGING: Chest x-ray showed pulmonary vascular congestion and possible mild perihilar pulmonary edema and cardiomegaly. CT abdomen without contrast showed mild diffuse colonic wall thickening concerning for colitis. No inflammatory findings, free air or fluid collection. No bowel obstruction. Cardiomegaly. Subtle peripheral hazy density in bilateral lower lobes. ASSESSMENT AND RECOMMENDATION: 1. Status post ablation of atrial fibrillation now with chills, rule out sepsis. We will start vancomycin and cefepime empiric coverage pending blood culture from the ED. Recommend echocardiogram of the heart to further evaluation her heart anatomy. 2. Chills suspect sepsis versus COVID-19 viral infection. We will send PCR test for COVID to confirm. Start vancomycin with cefepime empirically to cover for possible sepsis pending blood cultures. Place the patient in an enhanced droplet isolation for now. 3. Diarrhea with colitis, bacterial versus viral. We will send stool culture and continue metronidazole pending C. diff toxin screening for COVID with PCR test. Keep in contact isolation for now. 4. Weakness with dehydration, suspect due to the above. Continue IV fluid for hydration. Encourage oral intake. Thank you for the consult. ID will continue to follow. Brandt Blanco M.D. DR: NERIS JOB#: [id number] CC:
[2020-04-13 16:00] VITALS: BP 107/66
[2020-04-13] MEDS ORDERED: Golytely 4L ORAL SCH (16:00)
[2020-04-13] MEDS: Xarelto 10mg tab ORAL SCH (16:29)
[2020-04-13] MEDS: D5 1/2NS w/KCl 20mEq 1,000 ML IV SCH (16:33)
--- NOTE | 2020-04-13 16:53 | Consultation ---
History of Present Illness General Time patient seen: 09:00 Chief Complaint: SOB, malaise Referring physician: Dr. Jamil Present Illness HPI Rober Glover is a 65 yo F admitted c/o SOB and weakness. Pt had an atrial ablation about one week ago, since that time she's felt weak and short of breath. PMHx atrial fibrillation on Xarelto, CHF. At admission, EKG SR with PVCs, SBP and HR in normal territory. Hgb 13.5, WBCs 4.4, K+ 3.4, Cr 0.8, troponin 0.009, BNP 1047. Pt started on Lasix IV push in ER, COVID PCR test is pending at time of exam. Denies chest pain. Allergies: Coded Allergies: No Known Allergies (Unverified , 04/12/20) Medication History Scheduled Rivaroxaban (Xarelto*), 20 MG ORAL QHS, (Reported) Patient History Healthcare decision maker N Resuscitation status Advanced Directive on File Review of Systems Constitutional: Reports: malaise, weakness Eye: Reports: no symptoms ENT: Reports: no symptoms Respiratory: Reports: orthopnea, shortness of breath Cardiovascular: Reports: palpitations Gastrointestinal: Reports: no symptoms Skin: Reports: no symptoms Neurological: Reports: no symptoms Hematologic/Lymphatic: Reports: no symptoms All Other Systems: negative except mentioned in HPI Physical Exam General Appearance: no apparent distress HEENT: normocephalic Neck: non-tender Respiratory/Chest: no respiratory distress Cardiovascular/Chest: normal rate, arrhythmia Extremities: trace edema Neurologic: registered nurse cardiac II-XII grossly normal Last 24 Hour Vital Signs Date Time Temp Pulse Resp B/P (MAP) Pulse Ox O2 Delivery O2 Flow Rate FiO2 04/13/20 16:00 96.8 69 18 107/66 (80) 99 04/13/20 12:00 97.3 77 18 111/70 (84) 99 04/13/20 12:00 82 04/13/20 09:00 Room Air 04/13/20 08:00 97.1 66 18 95/64 (74) 98 04/13/20 08:00 85 04/13/20 05:31 98.7 04/13/20 04:00 98.8 78 18 127/74 (91) 98 04/13/20 04:00 95 04/13/20 00:00 81 04/12/20 23:53 98.7 74 18 127/74 (91) 97 04/12/20 22:32 97.8 04/12/20 21:06 97.8 74 19 115/74 (88) 98 04/12/20 21:00 Room Air 04/12/20 20:00 97.8 74 18 118/74 (89) 95 04/12/20 17:33 98.1 96 19 101/60 (74) 94 04/12/20 17:15 89 Intake and Output 04/12/20 04/13/20 19:00 07:00 Intake Total 1075 ml 450 ml Balance 1075 ml 450 ml IV Total 1075 ml 450 ml # Voids 1 Laboratory Tests Test 04/13/20 04:45 04/13/20 11:04 White Blood Count 4.4 K/UL (4.8-10.8) L Red Blood Count 4.12 M/UL (4.20-5.40) L Hemoglobin 13.5 G/DL (12.0-16.0) Hematocrit 40.1 % (37.0-47.0) Mean Corpuscular Volume 97 FL (80-99) Mean Corpuscular Hemoglobin 32.7 PG (27.0-31.0) H Mean Corpuscular Hemoglobin Concent 33.6 G/DL (32.0-36.0) Red Cell Distribution Width 12.0 % (11.6-14.8) Platelet Count 146 K/UL (150-450) L Mean Platelet Volume 6.6 FL (6.5-10.1) Neutrophils (%) (Auto) 59.0 % (45.0-75.0) Lymphocytes (%) (Auto) 19.9 % (20.0-45.0) L Monocytes (%) (Auto) 18.3 % (1.0-10.0) H Eosinophils (%) (Auto) 1.7 % (0.0-3.0) Basophils (%) (Auto) 1.2 % (0.0-2.0) Sodium Level 137 MMOL/L (136-145) Potassium Level 3.4 MMOL/L (3.5-5.1) L Chloride Level 102 MMOL/L (98-107) Carbon Dioxide Level 27 MMOL/L (21-32) Anion Gap 8 mmol/L (5-15) Blood Urea Nitrogen 6 mg/dL (7-18) L Creatinine 0.8 MG/DL (0.55-1.30) Estimat Glomerular Filtration Rate > 60 mL/min (>60) Glucose Level 87 MG/DL (74-106) Calcium Level 8.2 MG/DL (8.5-10.1) L Total Bilirubin 1.1 MG/DL (0.2-1.0) H Direct Bilirubin 0.2 MG/DL (0.0-0.3) Aspartate Amino Transf (AST/SGOT) 30 U/L (15-37) Alanine Aminotransferase (ALT/SGPT) 26 U/L (12-78) Alkaline Phosphatase 52 U/L (46-116) Troponin I 0.009 ng/mL (0.000-0.056) Total Protein 6.5 G/DL (6.4-8.2) Albumin 2.8 G/DL (3.4-5.0) L Globulin 3.7 g/dL Albumin/Globulin Ratio 0.8 (1.0-2.7) L Cortisol AM Sample Pending Height (Feet): 4 Height (Inches): 8.00 Weight (Pounds): 85 Medications Current Medications Medications (Trade) Dose Ordered Sig/Marquis Route PRN Reason Start Time Stop Time Status Last Admin Dose Admin Dextrose/ Electrolytes 1,000 ml @ 75 mls/hr [id number] IV 04/13/20 16:00 05/13/20 15:59 04/13/20 16:33 Metronidazole 100 ml @ 100 mls/hr Q8HR IVPB 04/12/20 20:00 04/19/20 19:59 04/13/20 14:26 Morphine Sulfate (Morphine Sulfate) 1 mg Q6H PRN IVP For Pain 4-10 04/12/20 18:00 04/19/20 17:59 04/13/20 04:56 Ondansetron HCl (Zofran) 4 mg Q6H PRN IVP Nausea & Vomiting 04/12/20 17:45 05/12/20 17:44 Pantoprazole (Protonix) 40 mg DAILY IVP 04/13/20 09:00 05/13/20 08:59 04/13/20 09:12 Polyethylene Glycol/ Electrolytes (Golytely) 4,000 ml ONCE ORAL 04/13/20 16:00 04/13/20 23:59 04/13/20 16:33 Potassium Chloride 100 ml @ 100 mls/hr Q1H IVPB 04/13/20 15:00 04/13/20 16:59 04/13/20 16:30 Rivaroxaban (Xarelto) 20 mg QPM ORAL 04/12/20 18:00 07/11/20 17:59 04/13/20 16:29 Assessment/Plan Assessment/Plan: 1. CHF, acute on chronic with elevated BNP 1047 Echo pending IV Lasix for diuresis 2. Atrial fibrillation - paroxysmal, rate controlled currently in SR Xarelto 20mg for AC s/p atrial ablation 3. Weakness 4. Diarrhea 5. Hypokalemia K+ replaced MIPS Medication Reconciliation 130 Medication Reconciliation Home medications reviewed and discussed with nursing Apolonia Mccauley PA-C Apr 13, 2020 16:53
--- NOTE | 2020-04-13 19:26 | NUR ---
NURSE HAND-OFF REPORT: Important Events on Shift: S/P 3 bags KCL, pending 1 bag KCL for K level 3.4, Bowel prep ongoing for colonoscopy tay, consent in; NPO at midnight, 2D echo done Patient Status: Stable Diet: clear liquids, NPO at midnight Pending Orders: Pending Results/Labs: Pending MD notification: Latest Vital Signs: Temperature 96.8 , Pulse 83 , B/P 107 /66 , Respiratory Rate 18 , O2 SAT 99 , Room Air, O2 Flow Rate . Vital Sign Comment: EKG Rhythm: Sinus Rhythm Rhythm change?: N MD Notified?: - MD Response: Latest Beauchamp Fall Score: 45 Fall Risk: High Risk Safety Measures: Call light Within Reach, Bed Alarm Zone 1, Side Rails Side Rails x1, Bed position Low and Locked. Fall Precautions: Patient Fall Education Report given to Sandra Andersen RN.
--- NOTE | 2020-04-13 19:30 | NUR ---
NURSE NOTES: Patient received from ORQUIDEA Lino. Patient is awake, alert and oriented x 4. Patient requested her IV fluids to be paused because she keeps going to the restroom. Patient able to verbalize her needs. Patient is on room air with no apparent respiratory distress. Patient is drinking bowel prep for colonoscopy procedure tomorrow. Patient has a right 20 gauge IV on her AC. Bed is in the lowest position, call light within reach. Will continue to monitor.
[2020-04-13 20:00] VITALS: BP 130/73
--- NOTE | 2020-04-13 20:59 | Infectious Diseases Prog Note ---
Assessment/Plan Problems: (1) S/P ablation of atrial fibrillation Assessment & Plan: With chills , rule out sepsis , Continue vancomycin and cefepime empirically pending blood culture from ED (2) Chills Assessment & Plan: Sepsis VS COVID 19 viral infection , await PCR test for COVID 19 to confirm, and continue vancomycin with cefepime empirically pending blood culture . place patient in enhanced droplets isolation (3) Diarrhea Assessment & Plan: Bacterial VS viral , monitor stool culture, and continue metronidazole pending C diff toxin , screening for COVID with PCR test is pending (4) Weakness Assessment & Plan: suspect due to the above Subjective HEENT: Reports: no symptoms Respiratory: Reports: no symptoms Breasts: Reports: no symptoms Cardiovascular: Reports: no symptoms Gastrointestinal/Abdominal: Reports: diarrhea Genitourinary: Reports: no symptoms Neurologic: Reports: no symptoms Psychiatric: Reports: no symptoms Skin: Reports: no symptoms Endocrine: Reports: no symptoms Hematologic: Reports: no symptoms Musculoskeletal: Reports: no symptoms Allergies: Coded Allergies: No Known Allergies (Unverified , 04/12/20) she was feeling better with no chills , with less diarrhea , no cough or SOB Objective Last 24 Hour Vital Signs Date Time Temp Pulse Resp B/P (MAP) Pulse Ox O2 Delivery O2 Flow Rate FiO2 04/13/20 16:00 83 04/13/20 16:00 96.8 69 18 107/66 (80) 99 04/13/20 12:00 97.3 77 18 111/70 (84) 99 04/13/20 12:00 82 04/13/20 09:00 Room Air 04/13/20 08:00 97.1 66 18 95/64 (74) 98 04/13/20 08:00 85 04/13/20 05:31 98.7 04/13/20 04:00 98.8 78 18 127/74 (91) 98 04/13/20 04:00 95 04/13/20 00:00 81 04/12/20 23:53 98.7 74 18 127/74 (91) 97 04/12/20 22:32 97.8 04/12/20 21:06 97.8 74 19 115/74 (88) 98 04/12/20 21:00 Room Air Height (Feet): 4 Height (Inches): 8.00 Weight (Pounds): 85 General Appearance: WD/WN, no acute distress HEENT: normocephalic, atraumatic, anicteric, mucous membranes moist, PERRL Respiratory/Chest: chest wall non-tender, lungs clear, normal breath sounds, no respiratory distress, no accessory muscle use Cardiovascular: normal peripheral pulses, normal rate, regular rhythm, no gallop/murmur, no JVD Abdomen: normal bowel sounds, soft, non tender, no organomegaly, non distended, no mass, no scars Genitourinary: normal external genitalia Extremities: no cyanosis, no clubbing Skin: no rash, no lesions, no ulcers Neurologic/Psychiatric: finish cleaner II-XII grossly normal, no motor/sensory deficits, alert, oriented x 3, responsive Lymphatic: no neck adenopathy, no groin adenopathy Musculoskeletal: normal muscle bulk, no effusion Microbiology Date/Time Source Procedure Growth Status 04/12/20 11:55 Nasopharynx SARS-CoV-2 RdRp Gene Assay - Final Complete Laboratory Tests Test 04/13/20 04:45 04/13/20 11:04 White Blood Count 4.4 K/UL (4.8-10.8) L Red Blood Count 4.12 M/UL (4.20-5.40) L Hemoglobin 13.5 G/DL (12.0-16.0) Hematocrit 40.1 % (37.0-47.0) Mean Corpuscular Volume 97 FL (80-99) Mean Corpuscular Hemoglobin 32.7 PG (27.0-31.0) H Mean Corpuscular Hemoglobin Concent 33.6 G/DL (32.0-36.0) Red Cell Distribution Width 12.0 % (11.6-14.8) Platelet Count 146 K/UL (150-450) L Mean Platelet Volume 6.6 FL (6.5-10.1) Neutrophils (%) (Auto) 59.0 % (45.0-75.0) Lymphocytes (%) (Auto) 19.9 % (20.0-45.0) L Monocytes (%) (Auto) 18.3 % (1.0-10.0) H Eosinophils (%) (Auto) 1.7 % (0.0-3.0) Basophils (%) (Auto) 1.2 % (0.0-2.0) Sodium Level 137 MMOL/L (136-145) Potassium Level 3.4 MMOL/L (3.5-5.1) L Chloride Level 102 MMOL/L (98-107) Carbon Dioxide Level 27 MMOL/L (21-32) Anion Gap 8 mmol/L (5-15) Blood Urea Nitrogen 6 mg/dL (7-18) L Creatinine 0.8 MG/DL (0.55-1.30) Estimat Glomerular Filtration Rate > 60 mL/min (>60) Glucose Level 87 MG/DL (74-106) Calcium Level 8.2 MG/DL (8.5-10.1) L Total Bilirubin 1.1 MG/DL (0.2-1.0) H Direct Bilirubin 0.2 MG/DL (0.0-0.3) Aspartate Amino Transf (AST/SGOT) 30 U/L (15-37) Alanine Aminotransferase (ALT/SGPT) 26 U/L (12-78) Alkaline Phosphatase 52 U/L (46-116) Troponin I 0.009 ng/mL (0.000-0.056) Total Protein 6.5 G/DL (6.4-8.2) Albumin 2.8 G/DL (3.4-5.0) L Globulin 3.7 g/dL Albumin/Globulin Ratio 0.8 (1.0-2.7) L Cortisol AM Sample Pending Current Medications Medications (Trade) Dose Ordered Sig/Marquis Route PRN Reason Start Time Stop Time Status Last Admin Dose Admin Dextrose/ Electrolytes 1,000 ml @ 75 mls/hr [id number] IV 04/13/20 16:00 05/13/20 15:59 04/13/20 16:33 Metronidazole 100 ml @ 100 mls/hr Q8HR IVPB 04/12/20 20:00 04/19/20 19:59 04/13/20 14:26 Morphine Sulfate (Morphine Sulfate) 1 mg Q6H PRN IVP For Pain 4-10 04/12/20 18:00 04/19/20 17:59 04/13/20 04:56 Ondansetron HCl (Zofran) 4 mg Q6H PRN IVP Nausea & Vomiting 04/12/20 17:45 05/12/20 17:44 04/13/20 20:40 Pantoprazole (Protonix) 40 mg DAILY IVP 04/13/20 09:00 05/13/20 08:59 04/13/20 09:12 Polyethylene Glycol/ Electrolytes (Golytely) 4,000 ml ONCE ORAL 04/13/20 16:00 04/13/20 23:59 04/13/20 16:33 Potassium Chloride 100 ml @ 100 mls/hr Q1H IVPB 04/13/20 20:00 04/13/20 20:59 04/13/20 20:40 Rivaroxaban (Xarelto) 20 mg QPM ORAL 04/12/20 18:00 07/11/20 17:59 04/13/20 16:29 Brandt Blanco M.D. Apr 13, 2020 20:59
[2020-04-13] MEDS ORDERED: Vancomycin 500mg/D5W 110ml IVPB SCH ×2 (22:00)
[2020-04-14] VITALS: BP 125/80
[2020-04-14 04:11] VITALS: BP 100/60
[2020-04-14] MEDS: D5 1/2NS w/KCl 20mEq 1,000 ML IV SCH ×2 (05:20→16:39)
--- NOTE | 2020-04-14 07:07 | Anethesia Preoperative Eval ---
Anesthesia Pre-op PMH/ROS General Date of Evaluation: Apr 14, 2020 Time of Evaluation: 07:06 Anesthesiologist: radha Mallampati Score Class I : Soft palate, uvula, fauces, pillars visible Class II: Soft palate, uvula, fauces visible Class III: Soft palate, base of uvula visible Class IV: Only hard plate visible Allergies: Coded Allergies: No Known Allergies (Unverified , 04/12/20) Anesthesia Pre-op Phys. Exam Physician Exam Last Vital Signs Date Time Temp Pulse Resp B/P (MAP) Pulse Ox O2 Delivery O2 Flow Rate FiO2 04/14/20 04:11 97.7 71 20 100/60 (73) 97 04/13/20 21:00 Room Air Anesthesia Pre-op A/P Labs Hematology Test 04/14/20 05:30 White Blood Count Pending Red Blood Count Pending Hemoglobin Pending Hematocrit Pending Mean Corpuscular Volume Pending Mean Corpuscular Hemoglobin Pending Mean Corpuscular Hemoglobin Concent Pending Red Cell Distribution Width Pending Platelet Count Pending Mean Platelet Volume Pending Neutrophils (%) (Auto) Pending Lymphocytes (%) (Auto) Pending Monocytes (%) (Auto) Pending Eosinophils (%) (Auto) Pending Basophils (%) (Auto) Pending Chemistry Test 04/13/20 11:04 04/14/20 05:30 Cortisol AM Sample 21.3 UG/DL Sodium Level Pending Potassium Level Pending Chloride Level Pending Carbon Dioxide Level Pending Blood Urea Nitrogen Pending Creatinine Pending Estimat Glomerular Filtration Rate Pending Glucose Level Pending Calcium Level Pending Total Bilirubin Pending Aspartate Amino Transf (AST/SGOT) Pending Alanine Aminotransferase (ALT/SGPT) Pending Alkaline Phosphatase Pending Total Protein Pending Albumin Pending Globulin Pending Jazlyn Servin MD Apr 14, 2020 07:07
[2020-04-14 07:23] LABS: HEMATOCRIT 38.2 % (37.0-47.0); HEMOGLOBIN 12.9 G/DL (12.0-16.0); MEAN CORPUSCULAR VOLUME 97 FL (80-99); PLATELET COUNT 137 K/UL (150-450); RED BLOOD COUNT 3.93 M/UL (4.20-5.40); RED CELL DISTRIBUTION WIDTH 12.2 % (11.6-14.8); WHITE BLOOD COUNT 3.4 K/UL (4.8-10.8)
--- NOTE | 2020-04-14 07:29 | NUR ---
NURSE HAND-OFF REPORT: Important Events on Shift:[Patient has colonoscopy scheduled at 1400. Patient finished the bowel prep for the procedure. Patient family called and asked for patient condition, said will call after procedure.] Patient Status: [Stable] Diet: [NPO for procedure] Pending Orders: [] Pending Results/Labs:[] Pending MD notification:[] Latest Vital Signs: Temperature 97.7 , Pulse 71 , B/P 100 /60 , Respiratory Rate 20 , O2 SAT 97 , Room Air, O2 Flow Rate . Vital Sign Comment: [] EKG Rhythm: Sinus Rhythm Rhythm change?: N MD Notified?: - MD Response: Latest Beauchamp Fall Score: 45 Fall Risk: High Risk Safety Measures: Call light Within Reach, Bed Alarm Zone 1, Side Rails Side Rails x1, Bed position Low and Locked. Fall Precautions: Patient Fall Education Report given to [ORQUIDEA Mccloud].
[2020-04-14 08:00] VITALS: BP 100/60
[2020-04-14 08:17] LABS: ANION GAP 8 mmol/L (5-15); CARBON DIOXIDE 27 MMOL/L (21-32); CHLORIDE 106 MMOL/L (98-107); POTASSIUM 3.7 MMOL/L (3.5-5.1); SODIUM 141 MMOL/L (136-145)
--- NOTE | 2020-04-14 08:54 | Cardiology Progress Note ---
Assessment/Plan Status: stable Assessment/Plan 1. CHF, acute on chronic diastolic heart failure with preserved EF 55%, elevated BNP 1047 Troponin negative 0.009 Echo EF 55% IV Lasix for diuresis 2. Atrial fibrillation - paroxysmal, rate controlled currently in SR Xarelto 20mg for AC s/p atrial ablation one week ago 3. Weakness 4. Diarrhea - plan for colonoscopy per GI 5. Hypokalemia K+ replaced Subjective ROS Limited/Unobtainable: No Cardiovascular: Reports: no symptoms Respiratory: Reports: no symptoms Gastrointestinal/Abdominal: Reports: diarrhea Genitourinary: Reports: no symptoms Objective Last 24 Hour Vital Signs Date Time Temp Pulse Resp B/P (MAP) Pulse Ox O2 Delivery O2 Flow Rate FiO2 04/14/20 08:00 98.1 62 18 100/60 (73) 98 04/14/20 04:11 97.7 71 20 100/60 (73) 97 04/14/20 04:00 79 04/14/20 00:00 89 04/14/20 00:00 97.7 85 18 125/80 (95) 97 04/13/20 21:00 Room Air 04/13/20 20:00 96 04/13/20 20:00 97.2 92 18 130/73 (92) 96 04/13/20 16:00 83 04/13/20 16:00 96.8 69 18 107/66 (80) 99 04/13/20 12:00 97.3 77 18 111/70 (84) 99 04/13/20 12:00 82 04/13/20 09:00 Room Air General Appearance: no apparent distress, alert EENT: PERRL/EOMI, normal ENT inspection Neck: non-tender, supple, no JVD Rhythm: NSR, PVCs Cardiovascular: normal rate, regular rhythm Respiratory/Chest: normal breath sounds, no respiratory distress Abdomen: non tender, soft Extremities: no calf tenderness, no swelling Neurologic: psychologist clinical II-XII grossly normal, oriented x 3 Intake and Output 04/13/20 04/14/20 19:00 07:00 Intake Total 630 ml Balance 630 ml Intake Oral 630 ml # Voids 3 8 # Bowel Movements 3 4 2D Echo: EF 55%, diastolic dysfunction, mild TR, MR Laboratory Tests Test 04/13/20 11:04 04/14/20 05:30 Cortisol AM Sample 21.3 UG/DL White Blood Count 3.4 K/UL (4.8-10.8) L Red Blood Count 3.93 M/UL (4.20-5.40) L Hemoglobin 12.9 G/DL (12.0-16.0) Hematocrit 38.2 % (37.0-47.0) Mean Corpuscular Volume 97 FL (80-99) Mean Corpuscular Hemoglobin 32.7 PG (27.0-31.0) H Mean Corpuscular Hemoglobin Concent 33.7 G/DL (32.0-36.0) Red Cell Distribution Width 12.2 % (11.6-14.8) Platelet Count 137 K/UL (150-450) L Mean Platelet Volume 6.6 FL (6.5-10.1) Neutrophils (%) (Auto) % (45.0-75.0) Lymphocytes (%) (Auto) % (20.0-45.0) Monocytes (%) (Auto) % (1.0-10.0) Eosinophils (%) (Auto) % (0.0-3.0) Basophils (%) (Auto) % (0.0-2.0) Neutrophils % (Manual) Pending Lymphocytes % (Manual) Pending Platelet Estimate Pending Platelet Morphology Pending Sodium Level 141 MMOL/L (136-145) Potassium Level 3.7 MMOL/L (3.5-5.1) Chloride Level 106 MMOL/L (98-107) Carbon Dioxide Level 27 MMOL/L (21-32) Anion Gap 8 mmol/L (5-15) Blood Urea Nitrogen Pending Creatinine Pending Estimat Glomerular Filtration Rate Pending Glucose Level Pending Calcium Level Pending Total Bilirubin Pending Aspartate Amino Transf (AST/SGOT) Pending Alanine Aminotransferase (ALT/SGPT) Pending Alkaline Phosphatase Pending Total Protein Pending Albumin Pending Globulin Pending Microbiology Date/Time Source Procedure Growth Status 04/12/20 11:55 Nasopharynx SARS-CoV-2 RdRp Gene Assay - Final Complete 04/12/20 11:55 Blood Blood Culture - Preliminary NO GROWTH AFTER 24 HOURS Resulted 04/12/20 11:55 Blood Blood Culture - Preliminary NO GROWTH AFTER 24 HOURS Resulted 04/12/20 10:23 Stool Clostridium difficile Toxin Assay - Final Complete Objective Pt feeling a little better, in SR rate controlled and SBP in normal territory, plan for colonoscopy today Apolonia Mccauley PA-C Apr 14, 2020 08:54
--- NOTE | 2020-04-14 09:15 | Pre-Procedure Note/Attestation ---
Pre-Procedure Note/Attestation Complete Prior to Procedure Planned Procedure: not applicable Procedure Narrative: colonoscopy Indications for Procedure Pre-Operative Diagnosis: colitis Attestation I attest that I discussed the nature of the procedure; its benefits; risks and complications; and alternatives (and the risks and benefits of such alternatives), prior to the procedure, with the patient (or the patient's legal architectural representative). I attest that, if there was a reasonable possibility of needing a blood trans fusion, the patient (or the patient's legal architectural representative) was given the [facility] standardized written summary, pursuant to the Jerry Aura Blood Safety Act ([place] Health and Safety Code # 1645, as amended). I attest that I re-evaluated the patient just prior to the surgery and that there has been no change in the patient's H&P, except as documented below: Matthias Collins MD Apr 14, 2020 09:15
[2020-04-14 09:24] LABS: ALANINE AMINOTRANSFERASE 32 U/L (12-78); ALBUMIN 2.9 G/DL (3.4-5.0); ALBUMIN/GLOBULIN RATIO 0.8 (1.0-2.7); ALKALINE PHOSPHATASE 68 U/L (46-116); ASPARTATE AMINO TRANSFERASE 66 U/L (15-37); BILIRUBIN,TOTAL 0.6 MG/DL (0.2-1.0); BLOOD UREA NITROGEN 7 mg/dL (7-18); CALCIUM 8.4 MG/DL (8.5-10.1); CREATININE 0.7 MG/DL (0.55-1.30)
[2020-04-14] MEDS: Pantoprazole Inj IVP SCH (09:49)
--- NOTE | 2020-04-14 10:16 | Pulmonology Progress Note ---
Subjective ROS Limited/Unobtainable: No Interval Events: None new reported Constitutional: Reports: no symptoms HEENT: Repors: no symptoms Respiratory: Reports: no symptoms Cardiovascular: Reports: no symptoms Gastrointestinal/Abdominal: Reports: no symptoms Genitourinary: Reports: no symptoms Psychiatric: Reports: no symptoms Skin: Reports: no symptoms Musculoskeletal: Reports: no symptoms Allergies: Coded Allergies: No Known Allergies (Unverified , 04/12/20) Objective Last 24 Hour Vital Signs Date Time Temp Pulse Resp B/P (MAP) Pulse Ox O2 Delivery O2 Flow Rate FiO2 04/14/20 08:00 98.1 62 18 100/60 (73) 98 04/14/20 07:52 74 04/14/20 04:11 97.7 71 20 100/60 (73) 97 04/14/20 04:00 79 04/14/20 00:00 89 04/14/20 00:00 97.7 85 18 125/80 (95) 97 04/13/20 21:00 Room Air 04/13/20 20:00 96 04/13/20 20:00 97.2 92 18 130/73 (92) 96 04/13/20 16:00 83 04/13/20 16:00 96.8 69 18 107/66 (80) 99 04/13/20 12:00 97.3 77 18 111/70 (84) 99 04/13/20 12:00 82 Intake and Output 04/13/20 04/14/20 19:00 07:00 Intake Total 630 ml Balance 630 ml Intake Oral 630 ml # Voids 3 8 # Bowel Movements 3 4 General Appearance: no acute distress HEENT: normocephalic Respiratory: chest wall non-tender Cardiovascular: normal peripheral pulses Microbiology Date/Time Source Procedure Growth Status 04/12/20 11:55 Nasopharynx SARS-CoV-2 RdRp Gene Assay - Final Complete 04/12/20 11:55 Blood Blood Culture - Preliminary NO GROWTH AFTER 24 HOURS Resulted 04/12/20 11:55 Blood Blood Culture - Preliminary NO GROWTH AFTER 24 HOURS Resulted 04/12/20 10:23 Stool Clostridium difficile Toxin Assay - Final Complete Laboratory Tests 04/13/20 11:04: Cortisol AM Sample 21.3 04/14/20 05:00: Pro-B-Type Natriuretic Peptide 1047H 04/14/20 05:30: White Blood Count 3.4L, Red Blood Count 3.93L, Hemoglobin 12.9, Hematocrit 38.2, Mean Corpuscular Volume 97, Mean Corpuscular Hemoglobin 32.7H, Mean Corpuscular Hemoglobin Concent 33.7, Red Cell Distribution Width 12.2, Platelet Count 137L, Mean Platelet Volume 6.6, Neutrophils (%) (Auto) , Lymphocytes (%) (Auto) , Monocytes (%) (Auto) , Eosinophils (%) (Auto) , Basophils (%) (Auto) , Neutrophils % (Manual) [Pending], Lymphocytes % (Manual) [Pending], Platelet Estimate [Pending], Platelet Morphology [Pending], Sodium Level 141, Potassium Level 3.7, Chloride Level 106, Carbon Dioxide Level 27, Anion Gap 8, Blood Urea Nitrogen 7, Creatinine 0.7, Estimat Glomerular Filtration Rate > 60, Glucose Level 117H, Calcium Level 8.4L, Total Bilirubin 0.6, Aspartate Amino Transf (AST/SGOT) 66H, Alanine Aminotransferase (ALT/SGPT) 32, Alkaline Phosphatase 68, Total Protein 6.5, Albumin 2.9L, Globulin 3.6, Albumin/Globulin Ratio 0.8L Current Medications Medications (Trade) Dose Ordered Sig/Marquis Route PRN Reason Start Time Stop Time Status Last Admin Dose Admin Dextrose/ Electrolytes 1,000 ml @ 75 mls/hr [id number] IV 04/13/20 16:00 05/13/20 15:59 04/13/20 16:33 Furosemide (Lasix) 20 mg DAILY IV 04/14/20 10:00 05/14/20 09:59 04/14/20 09:48 Metronidazole 100 ml @ 100 mls/hr Q8HR IVPB 04/12/20 20:00 04/19/20 19:59 04/14/20 05:34 Morphine Sulfate (Morphine Sulfate) 1 mg Q6H PRN IVP For Pain 4-10 04/12/20 18:00 04/19/20 17:59 04/13/20 04:56 Ondansetron HCl (Zofran) 4 mg Q6H PRN IVP Nausea & Vomiting 04/12/20 17:45 05/12/20 17:44 04/13/20 20:40 Pantoprazole (Protonix) 40 mg DAILY IVP 04/13/20 09:00 05/13/20 08:59 04/14/20 09:49 Rivaroxaban (Xarelto) 20 mg QPM ORAL 04/12/20 18:00 07/11/20 17:59 04/13/20 16:29 Assessment/Plan Assessment/Plan IMPRESSION: 1. Mild pulmonary edema. 2. Chronic atrial fibrillation, status post ablation. 3. Chronic anticoagulation. 4. Colitis. 5. Pulmonary edema. DISCUSSION: Currently saturating well on room air. Fluid and electrolyte management Antibiotics per Dr. Jamil. I will follow. Chip Saavedra Omar Syed MD Apr 14, 2020 10:16
[2020-04-14 12:00] VITALS: BP 130/73
--- NOTE | 2020-04-14 13:41 | General Progress Note ---
Subjective ROS Limited/Unobtainable: Yes Allergies: Coded Allergies: No Known Allergies (Unverified , 04/12/20) Objective Last 24 Hour Vital Signs Date Time Temp Pulse Resp B/P (MAP) Pulse Ox O2 Delivery O2 Flow Rate FiO2 04/14/20 12:00 77 04/14/20 12:00 97.9 72 18 130/73 (92) 99 04/14/20 09:00 Room Air 04/14/20 08:00 98.1 62 18 100/60 (73) 98 04/14/20 07:52 74 04/14/20 04:11 97.7 71 20 100/60 (73) 97 04/14/20 04:00 79 04/14/20 00:00 89 04/14/20 00:00 97.7 85 18 125/80 (95) 97 04/13/20 21:00 Room Air 04/13/20 20:00 96 04/13/20 20:00 97.2 92 18 130/73 (92) 96 04/13/20 16:00 83 04/13/20 16:00 96.8 69 18 107/66 (80) 99 Intake and Output 04/13/20 04/14/20 19:00 07:00 Intake Total 630 ml Balance 630 ml Intake Oral 630 ml # Voids 3 8 # Bowel Movements 3 4 Laboratory Tests 04/14/20 05:00: Pro-B-Type Natriuretic Peptide 1047H 04/14/20 05:30: White Blood Count 3.4L, Red Blood Count 3.93L, Hemoglobin 12.9, Hematocrit 38.2, Mean Corpuscular Volume 97, Mean Corpuscular Hemoglobin 32.7H, Mean Corpuscular Hemoglobin Concent 33.7, Red Cell Distribution Width 12.2, Platelet Count 137L, Mean Platelet Volume 6.6, Neutrophils (%) (Auto) , Lymphocytes (%) (Auto) , Monocytes (%) (Auto) , Eosinophils (%) (Auto) , Basophils (%) (Auto) , Differential Total Cells Counted 100, Neutrophils % (Manual) 50, Lymphocytes % (Manual) 34, Monocytes % (Manual) 15H, Eosinophils % (Manual) 0, Basophils % (Manual) 1, Band Neutrophils 0, Platelet Estimate DecreasedL, Platelet Morphology Normal, Macrocytosis 1+, Sodium Level 141, Potassium Level 3.7, Chloride Level 106, Carbon Dioxide Level 27, Anion Gap 8, Blood Urea Nitrogen 7, Creatinine 0.7, Estimat Glomerular Filtration Rate > 60, Glucose Level 117H, Calcium Level 8.4L, Total Bilirubin 0.6, Aspartate Amino Transf (AST/SGOT) 66H, Alanine Aminotransferase (ALT/SGPT) 32, Alkaline Phosphatase 68, Total Protein 6.5, Albumin 2.9L, Globulin 3.6, Albumin/Globulin Ratio 0.8L Height (Feet): 4 Height (Inches): 8.00 Weight (Pounds): 84 General Appearance: no apparent distress EENT: PERRL/EOMI Neck: supple Cardiovascular: normal rate Respiratory/Chest: decreased breath sounds Abdomen: normal bowel sounds, non tender, soft Extremities: non-tender Assessment/Plan Problem List: (1) Colitis ICD Codes: K52.9 - Noninfective gastroenteritis and colitis, unspecified SNOMED: 80164830 (2) Chills ICD Codes: R68.83 - Chills (without fever) SNOMED: 01075195 (3) CHF (congestive heart failure) ICD Codes: I50.9 - Heart failure, unspecified SNOMED: 03652859 (4) Weakness ICD Codes: R53.1 - Weakness SNOMED: 04565748 (5) Diarrhea ICD Codes: R19.7 - Diarrhea, unspecified SNOMED: 11940097 (6) S/P ablation of atrial fibrillation ICD Codes: Z98.890 - Other specified postprocedural states; Z86.79 - Personal history of other diseases of the circulatory system SNOMED: 141550553, 333904331, 853358541, [id number] Status: stable Assessment/Plan: fu stool studies clears colonoscopy has been rescheduled for tomorrow given pending COVID test Matthias Collins MD Apr 14, 2020 13:41
--- NOTE | 2020-04-14 14:13 | General Progress Note ---
Subjective Allergies: Coded Allergies: No Known Allergies (Unverified , 04/12/20) Objective Last 24 Hour Vital Signs Date Time Temp Pulse Resp B/P (MAP) Pulse Ox O2 Delivery O2 Flow Rate FiO2 04/14/20 12:00 77 04/14/20 12:00 97.9 72 18 130/73 (92) 99 04/14/20 09:00 Room Air 04/14/20 08:00 98.1 62 18 100/60 (73) 98 04/14/20 07:52 74 04/14/20 04:11 97.7 71 20 100/60 (73) 97 04/14/20 04:00 79 04/14/20 00:00 89 04/14/20 00:00 97.7 85 18 125/80 (95) 97 04/13/20 21:00 Room Air 04/13/20 20:00 96 04/13/20 20:00 97.2 92 18 130/73 (92) 96 04/13/20 16:00 83 04/13/20 16:00 96.8 69 18 107/66 (80) 99 Intake and Output 04/13/20 04/14/20 19:00 07:00 Intake Total 630 ml Balance 630 ml Intake Oral 630 ml # Voids 3 8 # Bowel Movements 3 4 Laboratory Tests 04/14/20 05:00: Pro-B-Type Natriuretic Peptide 1047H 04/14/20 05:30: White Blood Count 3.4L, Red Blood Count 3.93L, Hemoglobin 12.9, Hematocrit 38.2, Mean Corpuscular Volume 97, Mean Corpuscular Hemoglobin 32.7H, Mean Corpuscular Hemoglobin Concent 33.7, Red Cell Distribution Width 12.2, Platelet Count 137L, Mean Platelet Volume 6.6, Neutrophils (%) (Auto) , Lymphocytes (%) (Auto) , Monocytes (%) (Auto) , Eosinophils (%) (Auto) , Basophils (%) (Auto) , Differential Total Cells Counted 100, Neutrophils % (Manual) 50, Lymphocytes % (Manual) 34, Monocytes % (Manual) 15H, Eosinophils % (Manual) 0, Basophils % (Manual) 1, Band Neutrophils 0, Platelet Estimate DecreasedL, Platelet Morphology Normal, Macrocytosis 1+, Sodium Level 141, Potassium Level 3.7, Chloride Level 106, Carbon Dioxide Level 27, Anion Gap 8, Blood Urea Nitrogen 7, Creatinine 0.7, Estimat Glomerular Filtration Rate > 60, Glucose Level 117H, Calcium Level 8.4L, Total Bilirubin 0.6, Aspartate Amino Transf (AST/SGOT) 66H, Alanine Aminotransferase (ALT/SGPT) 32, Alkaline Phosphatase 68, Total Protein 6.5, Albumin 2.9L, Globulin 3.6, Albumin/Globulin Ratio 0.8L Height (Feet): 4 Height (Inches): 8.00 Weight (Pounds): 84 Assessment/Plan Status: stable Assessment/Plan: S: I am ok O: seems comfortable, minimal diarrhea PHYSICAL EXAMINATION:HEAD AND NECK: Atraumatic and normocephalic. CHEST: Clear to auscultation.HEART: S1 and S2. Regular rate and rhythm. ABDOMEN: Tenderness on deep palpation. MUSCULOSKELETAL: No gross lateralized motor deficit. NEUROLOGIC: The patient is awake, alert, oriented x3. LABORATORY DATA: Dated April 14, reviewed ASSESSMENT AND PLAN: 1. Subacute colitis with prior history of IBS/IBD. 2. Thrombocytopenia. 3. Paroxysmal atrial fibrillation. 4. leukopenia. 5. GI and DVT prophylaxis. Colonoscopy per GI current abx Flako Jamil MD Apr 14, 2020 14:13
--- NOTE | 2020-04-14 14:52 | Infectious Diseases Prog Note ---
Assessment/Plan Problems: (1) S/P ablation of atrial fibrillation Assessment & Plan: With chills , and no evidence of sepsis with negative blood culture we will discontinue vancomycin and cefepime empirically (2) Chills Assessment & Plan: rule out viral etiology such as COVID 19 viral infection , await PCR test for COVID 19 to confirm, and stop vancomycin with cefepime empirically since blood culture is negative 2. place patient in enhanced droplets isolation (3) Diarrhea Assessment & Plan: Bacterial VS viral , monitor stool culture, and continue metronidazole pending culture, C diff toxin is negative, screening for COVID with PCR test is pending (4) Weakness Assessment & Plan: suspect due to the above Subjective Constitutional: Reports: no symptoms HEENT: Reports: no symptoms Respiratory: Reports: no symptoms Breasts: Reports: no symptoms Cardiovascular: Reports: no symptoms Gastrointestinal/Abdominal: Reports: no symptoms Genitourinary: Reports: no symptoms Neurologic: Reports: no symptoms Psychiatric: Reports: no symptoms Skin: Reports: no symptoms Endocrine: Reports: no symptoms Hematologic: Reports: no symptoms Musculoskeletal: Reports: no symptoms Allergies: Coded Allergies: No Known Allergies (Unverified , 04/12/20) she was feeling better with no chills , with less diarrhea , no cough or SOB Objective Last 24 Hour Vital Signs Date Time Temp Pulse Resp B/P (MAP) Pulse Ox O2 Delivery O2 Flow Rate FiO2 04/14/20 12:00 77 04/14/20 12:00 97.9 72 18 130/73 (92) 99 04/14/20 09:00 Room Air 04/14/20 08:00 98.1 62 18 100/60 (73) 98 04/14/20 07:52 74 04/14/20 04:11 97.7 71 20 100/60 (73) 97 04/14/20 04:00 79 04/14/20 00:00 89 04/14/20 00:00 97.7 85 18 125/80 (95) 97 04/13/20 21:00 Room Air 04/13/20 20:00 96 04/13/20 20:00 97.2 92 18 130/73 (92) 96 04/13/20 16:00 83 04/13/20 16:00 96.8 69 18 107/66 (80) 99 Height (Feet): 4 Height (Inches): 8.00 Weight (Pounds): 84 General Appearance: WD/WN, no acute distress HEENT: normocephalic, atraumatic, anicteric, mucous membranes moist, PERRL Respiratory/Chest: chest wall non-tender, lungs clear, normal breath sounds, no respiratory distress, no accessory muscle use Cardiovascular: normal peripheral pulses, normal rate, regular rhythm, no gallop/murmur, no JVD Abdomen: normal bowel sounds, soft, non tender, no organomegaly, non distended, no mass, no scars Genitourinary: normal external genitalia Extremities: no cyanosis, no clubbing Skin: no rash, no lesions, no ulcers 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, no motor/sensory deficits, alert, oriented x 3, responsive Lymphatic: no neck adenopathy, no groin adenopathy Musculoskeletal: normal muscle bulk, no effusion Microbiology Date/Time Source Procedure Growth Status 04/12/20 11:55 Nasopharynx SARS-CoV-2 RdRp Gene Assay - Final Complete 04/12/20 11:55 Blood Blood Culture - Preliminary NO GROWTH AFTER 24 HOURS Resulted 04/12/20 11:55 Blood Blood Culture - Preliminary NO GROWTH AFTER 24 HOURS Resulted 04/12/20 10:23 Stool Clostridium difficile Toxin Assay - Final Complete Laboratory Tests Test 04/14/20 05:00 04/14/20 05:30 Pro-B-Type Natriuretic Peptide 1047 pg/mL (0-125) H White Blood Count 3.4 K/UL (4.8-10.8) L Red Blood Count 3.93 M/UL (4.20-5.40) L Hemoglobin 12.9 G/DL (12.0-16.0) Hematocrit 38.2 % (37.0-47.0) Mean Corpuscular Volume 97 FL (80-99) Mean Corpuscular Hemoglobin 32.7 PG (27.0-31.0) H Mean Corpuscular Hemoglobin Concent 33.7 G/DL (32.0-36.0) Red Cell Distribution Width 12.2 % (11.6-14.8) Platelet Count 137 K/UL (150-450) L Mean Platelet Volume 6.6 FL (6.5-10.1) Neutrophils (%) (Auto) % (45.0-75.0) Lymphocytes (%) (Auto) % (20.0-45.0) Monocytes (%) (Auto) % (1.0-10.0) Eosinophils (%) (Auto) % (0.0-3.0) Basophils (%) (Auto) % (0.0-2.0) Differential Total Cells Counted 100 Neutrophils % (Manual) 50 % (45-75) Lymphocytes % (Manual) 34 % (20-45) Monocytes % (Manual) 15 % (1-10) H Eosinophils % (Manual) 0 % (0-3) Basophils % (Manual) 1 % (0-2) Band Neutrophils 0 % (0-8) Platelet Estimate Decreased L Platelet Morphology Normal Macrocytosis 1+ Sodium Level 141 MMOL/L (136-145) Potassium Level 3.7 MMOL/L (3.5-5.1) Chloride Level 106 MMOL/L (98-107) Carbon Dioxide Level 27 MMOL/L (21-32) Anion Gap 8 mmol/L (5-15) Blood Urea Nitrogen 7 mg/dL (7-18) Creatinine 0.7 MG/DL (0.55-1.30) Estimat Glomerular Filtration Rate > 60 mL/min (>60) Glucose Level 117 MG/DL (74-106) H Calcium Level 8.4 MG/DL (8.5-10.1) L Total Bilirubin 0.6 MG/DL (0.2-1.0) Aspartate Amino Transf (AST/SGOT) 66 U/L (15-37) H Alanine Aminotransferase (ALT/SGPT) 32 U/L (12-78) Alkaline Phosphatase 68 U/L (46-116) Total Protein 6.5 G/DL (6.4-8.2) Albumin 2.9 G/DL (3.4-5.0) L Globulin 3.6 g/dL Albumin/Globulin Ratio 0.8 (1.0-2.7) L Current Medications Medications (Trade) Dose Ordered Sig/Marquis Route PRN Reason Start Time Stop Time Status Last Admin Dose Admin Dextrose/ Electrolytes 1,000 ml @ 75 mls/hr [id number] IV 04/13/20 16:00 05/13/20 15:59 04/13/20 16:33 Furosemide (Lasix) 20 mg DAILY IV 04/14/20 10:00 05/14/20 09:59 04/14/20 09:48 Metronidazole 100 ml @ 100 mls/hr Q8HR IVPB 04/12/20 20:00 04/19/20 19:59 04/14/20 13:41 Morphine Sulfate (Morphine Sulfate) 1 mg Q6H PRN IVP For Pain 4-10 04/12/20 18:00 04/19/20 17:59 04/13/20 04:56 Ondansetron HCl (Zofran) 4 mg Q6H PRN IVP Nausea & Vomiting 04/12/20 17:45 05/12/20 17:44 04/13/20 20:40 Pantoprazole (Protonix) 40 mg DAILY IVP 04/13/20 09:00 05/13/20 08:59 04/14/20 09:49 Rivaroxaban (Xarelto) 20 mg QPM ORAL 04/12/20 18:00 07/11/20 17:59 04/13/20 16:29 Brandt Blanco M.D. Apr 14, 2020 14:52
[2020-04-14 16:00] VITALS: BP 100/58
[2020-04-14] MEDS: Xarelto 10mg tab ORAL SCH (16:30)
--- NOTE | 2020-04-14 19:44 | NUR ---
NURSE HAND-OFF REPORT: Important Events on Shift: Patient Status: Diet: Pending Orders: Pending Results/Labs: Pending MD notification: Latest Vital Signs: Temperature 96.4 , Pulse 98 , B/P 100 /58 , Respiratory Rate 18 , O2 SAT 98 , Room Air, O2 Flow Rate . Vital Sign Comment: EKG Rhythm: Sinus Rhythm Rhythm change?: N MD Notified?: - MD Response: Latest Beauchamp Fall Score: 45 Fall Risk: High Risk Safety Measures: Call light Within Reach, Bed Alarm Zone 1, Side Rails Side Rails x2, Bed position Low and Locked. Fall Precautions: Patient Fall Education Report given to . Pt is awake and alert, no stress noted. Endorsed plan of care, Endorsed to keep pt NPO from mid night due to colonoscopy.
--- NOTE | 2020-04-14 19:45 | NUR ---
NURSE NOTES: Received pt AOX4, comfortable in bed; in no acute distress; denies any pain; noted with commode at bedside; call light within reach, bedside locked and in low position; will continue to monitor.
[2020-04-14 20:00] VITALS: BP 124/62
[2020-04-15] VITALS (10 sets, daily range): BP systolic 109–136; BP diastolic 61–85
--- NOTE | 2020-04-15 00:30 | NUR ---
NURSE NOTES: Left message to Dr. Russell (cardiology) regarding episodes of PACs and PVCs; pt sinus rhythm; asymptomatic; comfortable in bed watching TV; V/S within range. Awaiting MD call back. Will continue to monitor.
[2020-04-15] MEDS ORDERED: Midazolam 2mg/2ml Inj IVP PRN (06:30)
[2020-04-15] MEDS ORDERED: DiphenhydrAMINE 50mg/ml Inj IVP PRN (06:30)
[2020-04-15] MEDS ORDERED: Atropine Inj 1mg/10ml Syr IVP PRN (06:30)
[2020-04-15] MEDS ORDERED: fentaNYL 100 mcg/2 mL IV PRN (06:30)
--- NOTE | 2020-04-15 06:35 | Anethesia Preoperative Eval ---
Anesthesia Pre-op PMH/ROS General Date of Evaluation: Apr 15, 2020 Time of Evaluation: 06:32 Anesthesiologist: radha ASA Score: ASA 3 Mallampati Score Class I : Soft palate, uvula, fauces, pillars visible Class II: Soft palate, uvula, fauces visible Class III: Soft palate, base of uvula visible Class IV: Only hard plate visible Mallampati Classification: Class II Surgeon: francheska Diagnosis: colitis Surgical Procedure: colonoscopy Anesthesia History: none Social History: current smoker Family History: no anesthesia problems Allergies: Coded Allergies: No Known Allergies (Unverified , 04/12/20) Medications: see eMAR Patient NPO?: Yes Past Medical History Cardiovascular: Reports: arrhythmia, other - chf Gastrointestinal/Genitourinary: Reports: other - diarrhea, colitis Neurologic/Psychiatric: Reports: other - weakness Hematology/Immune: Reports: other - covid-19 nd Anesthesia Pre-op Phys. Exam Physician Exam Last Vital Signs Date Time Temp Pulse Resp B/P (MAP) Pulse Ox O2 Delivery O2 Flow Rate FiO2 04/15/20 04:00 96.1 81 17 109/61 (77) 94 04/14/20 21:00 Room Air Constitutional: NAD Neurologic: CN 2-12 intact Respiratory: CTA Gastrointestinal: S/NT/ND Airway Exam Mallampati Score: Class II MO: limited Neck: flexible TMD: 2fb ROM: limited Anesthesia Pre-op A/P Labs Microbiology Date/Time Source Procedure Growth Status 04/13/20 05:10 Nasopharynx Coronavirus COVID-19 PCR ([facility]) - Final Complete 04/12/20 11:55 Blood Blood Culture - Preliminary NO GROWTH AFTER 48 HOURS Resulted 04/12/20 10:23 Stool Clostridium difficile Toxin Assay - Final Complete Labs Test 04/12/20 11:55 04/12/20 12:05 04/13/20 04:45 04/13/20 11:04 White Blood Count 4.6 K/UL (4.8-10.8) 4.4 K/UL (4.8-10.8) Red Blood Count 4.65 M/UL (4.20-5.40) 4.12 M/UL (4.20-5.40) Hemoglobin 15.3 G/DL (12.0-16.0) 13.5 G/DL (12.0-16.0) Hematocrit 46.1 % (37.0-47.0) 40.1 % (37.0-47.0) Mean Corpuscular Volume 99 FL (80-99) 97 FL (80-99) Mean Corpuscular Hemoglobin 32.8 PG (27.0-31.0) 32.7 PG (27.0-31.0) Mean Corpuscular Hemoglobin Concent 33.1 G/DL (32.0-36.0) 33.6 G/DL (32.0-36.0) Red Cell Distribution Width 12.4 % (11.6-14.8) 12.0 % (11.6-14.8) Platelet Count 143 K/UL (150-450) 146 K/UL (150-450) Mean Platelet Volume 6.6 FL (6.5-10.1) 6.6 FL (6.5-10.1) Neutrophils (%) (Auto) 61.5 % (45.0-75.0) 59.0 % (45.0-75.0) Lymphocytes (%) (Auto) 19.7 % (20.0-45.0) 19.9 % (20.0-45.0) Monocytes (%) (Auto) 15.0 % (1.0-10.0) 18.3 % (1.0-10.0) Eosinophils (%) (Auto) 1.5 % (0.0-3.0) 1.7 % (0.0-3.0) Basophils (%) (Auto) 2.3 % (0.0-2.0) 1.2 % (0.0-2.0) Prothrombin Time 12.1 SEC (9.30-11.50) Prothromb Time International Ratio 1.1 (0.9-1.1) Activated Partial Thromboplast Time 35 SEC (23-33) Sodium Level 135 MMOL/L (136-145) 137 MMOL/L (136-145) Potassium Level 3.6 MMOL/L (3.5-5.1) 3.4 MMOL/L (3.5-5.1) Chloride Level 100 MMOL/L (98-107) 102 MMOL/L (98-107) Carbon Dioxide Level 27 MMOL/L (21-32) 27 MMOL/L (21-32) Anion Gap 8 mmol/L (5-15) 8 mmol/L (5-15) Blood Urea Nitrogen 6 mg/dL (7-18) 6 mg/dL (7-18) Creatinine 0.9 MG/DL (0.55-1.30) 0.8 MG/DL (0.55-1.30) Estimat Glomerular Filtration Rate > 60 mL/min (>60) > 60 mL/min (>60) Glucose Level 90 MG/DL (74-106) 87 MG/DL (74-106) Lactic Acid Level 0.80 mmol/L (0.4-2.0) Calcium Level 8.8 MG/DL (8.5-10.1) 8.2 MG/DL (8.5-10.1) Magnesium Level 2.1 MG/DL (1.8-2.4) Total Bilirubin 1.6 MG/DL (0.2-1.0) 1.1 MG/DL (0.2-1.0) Direct Bilirubin 0.3 MG/DL (0.0-0.3) 0.2 MG/DL (0.0-0.3) Aspartate Amino Transf (AST/SGOT) 37 U/L (15-37) 30 U/L (15-37) Alanine Aminotransferase (ALT/SGPT) 38 U/L (12-78) 26 U/L (12-78) Alkaline Phosphatase 57 U/L (46-116) 52 U/L (46-116) Troponin I 0.001 ng/mL (0.000-0.056) 0.009 ng/mL (0.000-0.056) Pro-B-Type Natriuretic Peptide 1047 pg/mL (0-125) Total Protein 8.3 G/DL (6.4-8.2) 6.5 G/DL (6.4-8.2) Albumin 3.7 G/DL (3.4-5.0) 2.8 G/DL (3.4-5.0) Globulin 4.6 g/dL 3.7 g/dL Albumin/Globulin Ratio 0.8 (1.0-2.7) 0.8 (1.0-2.7) Urine Color Pale yellow Urine Appearance Clear Urine pH 6 (4.5-8.0) Urine Specific [place] 1.005 (1.005-1.035) Urine Protein Negative (NEGATIVE) Urine Glucose (UA) Negative (NEGATIVE) Urine Ketones Negative (NEGATIVE) Urine Blood 3+ (NEGATIVE) Urine Nitrite Negative (NEGATIVE) Urine Bilirubin Negative (NEGATIVE) Urine Urobilinogen Normal MG/DL (0.0-1.0) Urine Leukocyte Esterase Negative (NEGATIVE) Urine RBC 0-2 /HPF (0 - 2) Urine WBC 0-2 /HPF (0 - 2) Urine Squamous Epithelial Cells Occasional /LPF Urine Bacteria Occasional /HPF (NONE) Cortisol AM Sample 21.3 UG/DL Test 04/14/20 05:00 04/14/20 05:30 Pro-B-Type Natriuretic Peptide 1047 pg/mL (0-125) White Blood Count 3.4 K/UL (4.8-10.8) Red Blood Count 3.93 M/UL (4.20-5.40) Hemoglobin 12.9 G/DL (12.0-16.0) Hematocrit 38.2 % (37.0-47.0) Mean Corpuscular Volume 97 FL (80-99) Mean Corpuscular Hemoglobin 32.7 PG (27.0-31.0) Mean Corpuscular Hemoglobin Concent 33.7 G/DL (32.0-36.0) Red Cell Distribution Width 12.2 % (11.6-14.8) Platelet Count 137 K/UL (150-450) Mean Platelet Volume 6.6 FL (6.5-10.1) Neutrophils (%) (Auto) % (45.0-75.0) Lymphocytes (%) (Auto) % (20.0-45.0) Monocytes (%) (Auto) % (1.0-10.0) Eosinophils (%) (Auto) % (0.0-3.0) Basophils (%) (Auto) % (0.0-2.0) Differential Total Cells Counted 100 Neutrophils % (Manual) 50 % (45-75) Lymphocytes % (Manual) 34 % (20-45) Monocytes % (Manual) 15 % (1-10) Eosinophils % (Manual) 0 % (0-3) Basophils % (Manual) 1 % (0-2) Band Neutrophils 0 % (0-8) Platelet Estimate Decreased Platelet Morphology Normal Macrocytosis 1+ Sodium Level 141 MMOL/L (136-145) Potassium Level 3.7 MMOL/L (3.5-5.1) Chloride Level 106 MMOL/L (98-107) Carbon Dioxide Level 27 MMOL/L (21-32) Anion Gap 8 mmol/L (5-15) Blood Urea Nitrogen 7 mg/dL (7-18) Creatinine 0.7 MG/DL (0.55-1.30) Estimat Glomerular Filtration Rate > 60 mL/min (>60) Glucose Level 117 MG/DL (74-106) Calcium Level 8.4 MG/DL (8.5-10.1) Total Bilirubin 0.6 MG/DL (0.2-1.0) Aspartate Amino Transf (AST/SGOT) 66 U/L (15-37) Alanine Aminotransferase (ALT/SGPT) 32 U/L (12-78) Alkaline Phosphatase 68 U/L (46-116) Total Protein 6.5 G/DL (6.4-8.2) Albumin 2.9 G/DL (3.4-5.0) Globulin 3.6 g/dL Albumin/Globulin Ratio 0.8 (1.0-2.7) Risk Assessment & Plan Assessment: asa3 Plan: mac Status Change Before Surgery: No Pre-Antibiotics Drug: Jazlyn Parnell MD Apr 15, 2020 06:34
[2020-04-15] MEDS ORDERED: Fleet's Mineral Oil Enema RECTAL ONE (06:45)
--- NOTE | 2020-04-15 06:48 | NUR ---
NURSE NOTES: Received phone call from lab that patient's PCR Covid swab is negative. Communicated with Dr. Collins who asked that the pt be cleared from isolation for colonoscopy today. RN communicated to Dr. Collins that pt had a BM in the morning (liquid but was not clear), Dr. Collins ordered for x1 enema. RN left message with Dr. Holt regarding pt's negative Covid swab - pending clearance to take off isolation.
--- NOTE | 2020-04-15 07:10 | NUR ---
NURSE HAND-OFF REPORT: Important Events on Shift: Scheduled colonoscopy today with consent already signed; fleet enema x 1 given @ 0645; pt was NPO @ midnight in preparation for colonoscopy; negative covid-19 Patient Status: AOX4, stable Diet: NPO Pending Orders: d/c contact/droplet isolation orders Pending Results/Labs: morning labs Pending MD notification: Dr. Carpio regarding d/c isolation order Latest Vital Signs: Temperature 96.1 , Pulse 66 , B/P 109 /61 , Respiratory Rate 17 , O2 SAT 94 , Room Air, O2 Flow Rate . Vital Sign Comment: stable EKG Rhythm: Sinus Rhythm Rhythm change?: N Notified?: Y -Dr. Drew FRAZIER Response: Message left await call Latest Beauchamp Fall Score: 45 Fall Risk: High Risk Safety Measures: Call light Within Reach, Bed Alarm Zone 1, Side Rails Side Rails x3, Bed position Low and Locked. Fall Precautions: Patient Fall Education Report given to ORQUIDEA Barry[].
--- NOTE | 2020-04-15 07:36 | General Progress Note ---
Subjective ROS Limited/Unobtainable: Yes Allergies: Coded Allergies: No Known Allergies (Unverified , 04/12/20) Objective Last 24 Hour Vital Signs Date Time Temp Pulse Resp B/P (MAP) Pulse Ox O2 Delivery O2 Flow Rate FiO2 04/15/20 04:00 96.1 81 17 109/61 (77) 94 04/15/20 04:00 66 04/15/20 00:00 98.4 76 17 118/77 (91) 96 04/15/20 00:00 99 04/14/20 21:00 Room Air 04/14/20 20:00 96.1 79 18 124/62 (82) 96 04/14/20 20:00 84 04/14/20 16:00 96.4 98 18 100/58 (72) 98 04/14/20 15:37 85 04/14/20 12:00 77 04/14/20 12:00 97.9 72 18 130/73 (92) 99 04/14/20 09:00 Room Air 04/14/20 08:00 98.1 62 18 100/60 (73) 98 04/14/20 07:52 74 Intake and Output 04/14/20 04/15/20 19:00 07:00 Intake Total 1850 ml 775 ml Balance 1850 ml 775 ml Intake Oral 850 ml IV Total 1000 ml 775 ml # Voids 2 3 # Bowel Movements 1 Height (Feet): 4 Height (Inches): 4.00 Weight (Pounds): 84 General Appearance: no apparent distress EENT: normal ENT inspection Neck: supple Cardiovascular: normal rate Respiratory/Chest: decreased breath sounds Abdomen: normal bowel sounds, non tender, soft Extremities: non-tender Assessment/Plan Problem List: (1) Colitis ICD Codes: K52.9 - Noninfective gastroenteritis and colitis, unspecified SNOMED: 65459562 (2) Chills ICD Codes: R68.83 - Chills (without fever) SNOMED: 41053421 (3) CHF (congestive heart failure) ICD Codes: I50.9 - Heart failure, unspecified SNOMED: 49340467 (4) Weakness ICD Codes: R53.1 - Weakness SNOMED: 00373530 (5) Diarrhea ICD Codes: R19.7 - Diarrhea, unspecified SNOMED: 87623886 (6) S/P ablation of atrial fibrillation ICD Codes: Z98.890 - Other specified postprocedural states; Z86.79 - Personal history of other diseases of the circulatory system SNOMED: 211831189, 750954756, 740058244, 919612728 Status: stable Assessment/Plan: plan for colonoscopy for today Matthias Collins MD Apr 15, 2020 07:35
[2020-04-15 07:52] LABS: HEMATOCRIT 43.3 % (37.0-47.0); HEMOGLOBIN 14.7 G/DL (12.0-16.0); MEAN CORPUSCULAR VOLUME 97 FL (80-99); PLATELET COUNT 161 K/UL (150-450); RED BLOOD COUNT 4.46 M/UL (4.20-5.40); RED CELL DISTRIBUTION WIDTH 12.2 % (11.6-14.8); WHITE BLOOD COUNT 3.3 K/UL (4.8-10.8)
--- NOTE | 2020-04-15 08:00 | NUR ---
NURSE NOTES: Report received from RN. Pt is AOx4, on room air with no signs of resp distress, sob or pain. 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 pt is afebrile. IV on right AC patent and infusing D5 1/2 NS @ 75ml/hr. Pt is ambulatory and using bedside commode. Pt is cont and currently NPO for scheduled colonoscopy. Bed low and locked, siderails up x2, call light placed within reach and instructed to call nurse for assistance. Will continue with plan of care.
--- NOTE | 2020-04-15 08:18 | NUR ---
CASE MANAGEMENT:REVIEW 04/15/20 SI: COLITIS. DIARRHEA. CHF. PAFIB 96.1 81 17 109/61 94% ON RA LABS PENDING IS: IV FLAGYL Q8HR IVF@75/HR IV LASIX QD IV PROTONIX QD : TELEMETRY STATUS DCP: FROM HOME PLAN: COLONOSCOPY FOR TODAY
[2020-04-15] MEDS: Pantoprazole Inj IVP SCH (08:35)
[2020-04-15] MEDS: D5 1/2NS w/KCl 20mEq 1,000 ML IV SCH (08:35)
[2020-04-15 08:37] LABS: ALANINE AMINOTRANSFERASE 38 U/L (12-78); ALBUMIN 3.2 G/DL (3.4-5.0); ALBUMIN/GLOBULIN RATIO 0.8 (1.0-2.7); ALKALINE PHOSPHATASE 50 U/L (46-116); ANION GAP 8 mmol/L (5-15); ASPARTATE AMINO TRANSFERASE 45 U/L (15-37); BILIRUBIN,TOTAL 0.7 MG/DL (0.2-1.0); BLOOD UREA NITROGEN 4 mg/dL (7-18); CALCIUM 8.9 MG/DL (8.5-10.1); CARBON DIOXIDE 28 MMOL/L (21-32); CHLORIDE 106 MMOL/L (98-107); CREATININE 0.7 MG/DL (0.55-1.30); POTASSIUM 3.2 MMOL/L (3.5-5.1); SODIUM 142 MMOL/L (136-145)
--- NOTE | 2020-04-15 09:52 | Cardiology Progress Note ---
Assessment/Plan Assessment/Plan 1. CHF, acute on chronic diastolic heart failure with preserved EF 55%, elevated BNP 1047 Troponin negative 0.009 Echo EF 55% IV Lasix for diuresis 2. Atrial fibrillation - paroxysmal, rate controlled currently in SR Xarelto 20mg for AC - held 24 hrs for colonoscopy s/p atrial ablation one week ago 3. Weakness 4. Diarrhea - plan for colonoscopy per GI 5. Hypokalemia K+ replaced Subjective ROS Limited/Unobtainable: No Cardiovascular: Reports: no symptoms Respiratory: Reports: no symptoms Gastrointestinal/Abdominal: Reports: diarrhea, nausea Genitourinary: Reports: no symptoms Subjective Denies chest pain or shortness of breath Objective Last 24 Hour Vital Signs Date Time Temp Pulse Resp B/P (MAP) Pulse Ox O2 Delivery O2 Flow Rate FiO2 04/15/20 08:00 96.1 71 17 136/66 (89) 94 04/15/20 04:00 96.1 81 17 109/61 (77) 94 04/15/20 04:00 66 04/15/20 00:00 98.4 76 17 118/77 (91) 96 04/15/20 00:00 99 04/14/20 21:00 Room Air 04/14/20 20:00 96.1 79 18 124/62 (82) 96 04/14/20 20:00 84 04/14/20 16:00 96.4 98 18 100/58 (72) 98 04/14/20 15:37 85 04/14/20 12:00 77 04/14/20 12:00 97.9 72 18 130/73 (92) 99 General Appearance: no apparent distress EENT: PERRL/EOMI, normal ENT inspection Neck: supple, no JVD Rhythm: NSR, PVCs Cardiovascular: normal rate, regular rhythm Respiratory/Chest: no respiratory distress, no accessory muscle use Abdomen: soft, no mass Extremities: trace edema 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, oriented x 3 Intake and Output 04/14/20 04/15/20 19:00 07:00 Intake Total 1850 ml 775 ml Balance 1850 ml 775 ml Intake Oral 850 ml IV Total 1000 ml 775 ml # Voids 2 3 # Bowel Movements 1 2D Echo: EF 55%, mild TR Laboratory Tests Test 04/15/20 06:08 White Blood Count 3.3 K/UL (4.8-10.8) L Red Blood Count 4.46 M/UL (4.20-5.40) Hemoglobin 14.7 G/DL (12.0-16.0) Hematocrit 43.3 % (37.0-47.0) Mean Corpuscular Volume 97 FL (80-99) Mean Corpuscular Hemoglobin 32.9 PG (27.0-31.0) H Mean Corpuscular Hemoglobin Concent 33.9 G/DL (32.0-36.0) Red Cell Distribution Width 12.2 % (11.6-14.8) Platelet Count 161 K/UL (150-450) Mean Platelet Volume 6.1 FL (6.5-10.1) L Neutrophils (%) (Auto) % (45.0-75.0) Lymphocytes (%) (Auto) % (20.0-45.0) Monocytes (%) (Auto) % (1.0-10.0) Eosinophils (%) (Auto) % (0.0-3.0) Basophils (%) (Auto) % (0.0-2.0) Neutrophils % (Manual) Pending Lymphocytes % (Manual) Pending Platelet Estimate Pending Platelet Morphology Pending Sodium Level 142 MMOL/L (136-145) Potassium Level 3.2 MMOL/L (3.5-5.1) L Chloride Level 106 MMOL/L (98-107) Carbon Dioxide Level 28 MMOL/L (21-32) Anion Gap 8 mmol/L (5-15) Blood Urea Nitrogen 4 mg/dL (7-18) L Creatinine 0.7 MG/DL (0.55-1.30) Estimat Glomerular Filtration Rate > 60 mL/min (>60) Glucose Level 111 MG/DL (74-106) H Calcium Level 8.9 MG/DL (8.5-10.1) Total Bilirubin 0.7 MG/DL (0.2-1.0) Aspartate Amino Transf (AST/SGOT) 45 U/L (15-37) H Alanine Aminotransferase (ALT/SGPT) 38 U/L (12-78) Alkaline Phosphatase 50 U/L (46-116) Total Protein 7.0 G/DL (6.4-8.2) Albumin 3.2 G/DL (3.4-5.0) L Globulin 3.8 g/dL Albumin/Globulin Ratio 0.8 (1.0-2.7) L Microbiology Date/Time Source Procedure Growth Status 04/13/20 05:10 Nasopharynx Coronavirus COVID-19 PCR ([facility]) - Final Complete 04/12/20 11:55 Nasopharynx SARS-CoV-2 RdRp Gene Assay - Final Complete 04/12/20 11:55 Blood Blood Culture - Preliminary NO GROWTH AFTER 48 HOURS Resulted 04/12/20 11:55 Blood Blood Culture - Preliminary NO GROWTH AFTER 48 HOURS Resulted 04/12/20 10:23 Stool Clostridium difficile Toxin Assay - Final Complete Objective Pt feeling a little better, in SR rate controlled and SBP in normal territory, plan for colonoscopy today Apolonia Mccauley PA-C Apr 15, 2020 09:52
[2020-04-15] MEDS ORDERED: Lidocaine 1% MPF 10mg/ml 5ml ONE (10:00)
[2020-04-15] MEDS ORDERED: NS 500ML IVPB ONE (10:05)
--- NOTE | 2020-04-15 10:06 | Pre-Procedure Note/Attestation ---
Pre-Procedure Note/Attestation Complete Prior to Procedure Planned Procedure: not applicable Procedure Narrative: colonoscopy Indications for Procedure Pre-Operative Diagnosis: colitis Attestation I attest that I discussed the nature of the procedure; its benefits; risks and complications; and alternatives (and the risks and benefits of such alternatives), prior to the procedure, with the patient (or the patient's legal retail field representative). I attest that, if there was a reasonable possibility of needing a blood trans fusion, the patient (or the patient's legal retail field representative) was given the [facility] standardized written summary, pursuant to the Jerry Aura Blood Safety Act ([place] Health and Safety Code # 1645, as amended). I attest that I re-evaluated the patient just prior to the surgery and that there has been no change in the patient's H&P, except as documented below: Matthias Collins MD Apr 15, 2020 10:06
--- NOTE | 2020-04-15 10:31 | Endoscopy Procedure Note ---
Endoscopy Procedure Note General Indication for Procedure: colitis Procedures Performed: colonoscopy Operative Findings/Diagnosis: same Specimen: yes Pt Tolerated Procedure Well: Yes Estimated Blood Loss: none Anesthesia Anesthesiologist: daren Anesthesia: MAC Inserted Devices Implant(s) used?: No GI Core Measures 50 yrs or older w/o bx or poly: Not Applicable 10yrs. F/U recommended: Not Applicable Matthias Collins MD Apr 15, 2020 10:31
--- NOTE | 2020-04-15 10:53 | Pulmonology Progress Note ---
Subjective ROS Limited/Unobtainable: No Interval Events: None new reported Constitutional: Reports: no symptoms HEENT: Repors: no symptoms Respiratory: Reports: no symptoms Cardiovascular: Reports: no symptoms Gastrointestinal/Abdominal: Reports: no symptoms Genitourinary: Reports: no symptoms Psychiatric: Reports: no symptoms Skin: Reports: no symptoms Musculoskeletal: Reports: no symptoms Allergies: Coded Allergies: No Known Allergies (Unverified , 04/12/20) Objective Last 24 Hour Vital Signs Date Time Temp Pulse Resp B/P (MAP) Pulse Ox O2 Delivery O2 Flow Rate FiO2 04/15/20 08:00 96.1 71 17 136/66 (89) 94 04/15/20 04:00 96.1 81 17 109/61 (77) 94 04/15/20 04:00 66 04/15/20 00:00 98.4 76 17 118/77 (91) 96 04/15/20 00:00 99 04/14/20 21:00 Room Air 04/14/20 20:00 96.1 79 18 124/62 (82) 96 04/14/20 20:00 84 04/14/20 16:00 96.4 98 18 100/58 (72) 98 04/14/20 15:37 85 04/14/20 12:00 77 04/14/20 12:00 97.9 72 18 130/73 (92) 99 Intake and Output 04/14/20 04/15/20 18:59 06:59 Intake Total 1850 ml 850 ml Balance 1850 ml 850 ml Intake Oral 850 ml IV Total 1000 ml 850 ml # Voids 2 3 # Bowel Movements 1 General Appearance: no acute distress HEENT: normocephalic Respiratory: chest wall non-tender Cardiovascular: normal peripheral pulses Microbiology Date/Time Source Procedure Growth Status 04/13/20 10:23 Stool Stool Culture - Preliminary NORMAL FECAL GLENIS. Resulted 04/13/20 05:10 Nasopharynx Coronavirus COVID-19 PCR ([facility]ICK) - Final Complete 04/12/20 11:55 Nasopharynx SARS-CoV-2 RdRp Gene Assay - Final Complete 04/12/20 11:55 Blood Blood Culture - Preliminary NO GROWTH AFTER 48 HOURS Resulted 04/12/20 11:55 Blood Blood Culture - Preliminary NO GROWTH AFTER 48 HOURS Resulted Laboratory Tests 04/15/20 06:08: White Blood Count 3.3L, Red Blood Count 4.46, Hemoglobin 14.7, Hematocrit 43.3, Mean Corpuscular Volume 97, Mean Corpuscular Hemoglobin 32.9H, Mean Corpuscular Hemoglobin Concent 33.9, Red Cell Distribution Width 12.2, Platelet Count 161, Mean Platelet Volume 6.1L, Neutrophils (%) (Auto) , Lymphocytes (%) (Auto) , Monocytes (%) (Auto) , Eosinophils (%) (Auto) , Basophils (%) (Auto) , Differential Total Cells Counted 100, Neutrophils % (Manual) 44L, Lymphocytes % (Manual) 34, Monocytes % (Manual) 19H, Eosinophils % (Manual) 1, Basophils % (Manual) 0, Band Neutrophils 2, Platelet Estimate Adequate, Platelet Morphology Normal, Red Blood Cell Morphology Normal, Sodium Level 142, Potassium Level 3.2L , Chloride Level 106, Carbon Dioxide Level 28, Anion Gap 8, Blood Urea Nitrogen 4L, Creatinine 0.7, Estimat Glomerular Filtration Rate > 60, Glucose Level 111H, Calcium Level 8.9, Total Bilirubin 0.7, Aspartate Amino Transf (AST/SGOT) 45H, Alanine Aminotransferase (ALT/SGPT) 38, Alkaline Phosphatase 50, Total Protein 7.0, Albumin 3.2L, Globulin 3.8, Albumin/Globulin Ratio 0.8L Current Medications Medications (Trade) Dose Ordered Sig/Marquis Route PRN Reason Start Time Stop Time Status Last Admin Dose Admin Acetaminophen (Tylenol) 650 mg Q4H PRN ORAL Mild Pain (Pain Scale 1-3) 04/15/20 06:30 04/15/20 18:00 Al Hydroxide/Mg Hydroxide (Mylanta) 15 ml Q1H PRN ORAL gi upset 04/15/20 06:30 04/15/20 18:00 Atropine Sulfate (Atropine) 0.5 mg Q5M PRN IVP bpm less than 45 04/15/20 06:30 04/15/20 18:00 Dextrose/ Electrolytes 1,000 ml @ 75 mls/hr [id number] IV 04/13/20 16:00 05/13/20 15:59 04/15/20 08:35 Diphenhydramine HCl (Benadryl) 25 mg Q15M PRN IVP Itching 04/15/20 06:30 04/15/20 18:00 Fentanyl Citrate (Sublimaze 100 mcg/2 mL) 25 mcg Q10M PRN IV Moderate Pain (Pain Scale 4-6) 04/15/20 06:30 04/15/20 18:00 Furosemide (Lasix) 20 mg DAILY IV 04/14/20 10:00 05/14/20 09:59 04/15/20 08:36 Hydralazine HCl (Apresoline) 5 mg Q30M PRN IV SBP>160 OR___/DBP>90 OR___ 04/15/20 06:30 04/15/20 18:00 Metronidazole 100 ml @ 100 mls/hr Q8HR IVPB 04/12/20 20:00 04/19/20 19:59 04/15/20 06:26 Midazolam HCl (Versed 2mg/2ml vial) 1 mg Q15M PRN IVP For Anxiety 04/15/20 06:30 04/15/20 18:00 Morphine Sulfate (Morphine Sulfate) 1 mg Q6H PRN IVP For Pain 4-10 04/12/20 18:00 04/19/20 17:59 04/13/20 04:56 Ondansetron HCl (Zofran) 4 mg Q1H PRN IVP Nausea & Vomiting 04/15/20 06:30 04/15/20 18:00 Ondansetron HCl (Zofran) 4 mg Q6H PRN IVP Nausea & Vomiting 04/12/20 17:45 05/12/20 17:44 04/13/20 20:40 Pantoprazole (Protonix) 40 mg DAILY IVP 04/13/20 09:00 05/13/20 08:59 04/15/20 08:35 Rivaroxaban (Xarelto) 20 mg QPM ORAL 04/12/20 18:00 07/11/20 17:59 04/13/20 16:29 Assessment/Plan Assessment/Plan IMPRESSION: 1. Mild pulmonary edema. 2. Chronic atrial fibrillation, status post ablation. 3. Chronic anticoagulation. 4. Colitis. 5. Pulmonary edema. DISCUSSION: Currently saturating well on room air. Fluid and electrolyte management Antibiotics per Dr. Jamil. I will follow. Chip Saavedra Omar Syed MD Apr 15, 2020 10:52
--- NOTE | 2020-04-15 10:53 | Immediate Post-Op Evaluation ---
Immediate Post-Op Evalulation Immediate Post-Op Evalulation Procedure: colonoscopy w/bx Date of Evaluation: Apr 15, 2020 Time of Evaluation: 10:50 IV Fluids: 200ml 0.9ns Blood Products: none Estimated Blood Loss: negligible Blood Pressure Systolic: 119 Blood Pressure Diastolic: 95 Pulse Rate: 70 Respiratory Rate: 18 O2 Sat by Pulse Oximetry: 99 Temperature (Fahrenheit): 97.9 Pain Score (1-10): 0 Nausea: No Vomiting: No Complications none Patient Status: awake, reacts, patent Hydration Status: adequate Drug: Jazlyn Parnell MD Apr 15, 2020 10:52
--- NOTE | 2020-04-15 10:54 | 48 Hour Post Anesthesia Eval ---
Post Anesthesia Evaluation Procedure: colonoscopy w/bx Date of Evaluation: Apr 15, 2020 Time of Evaluation: 10:54 Blood Pressure Systolic: 136 0: 66 Pulse Rate: 71 Respiratory Rate: 18 Temperature (Fahrenheit): 97.9 O2 Sat by Pulse Oximetry: 99 Airway: patent Nausea: No Vomiting: No Pain Intensity: 0 Hydration Status: adequate Cardiopulmonary Status: stable Mental Status/LOC: patient returned to baseline Post-Anesthesia Complications: none Follow-up care needed: N/A Jazlyn Servin MD Apr 15, 2020 10:54
--- NOTE | 2020-04-15 11:15 | Procedure Note ---
DATE OF PROCEDURE: 04/15/2020 SURGEON: Matthias Collins MD. REFERRING PHYSICIAN: Flako Jamil MD. PROCEDURE: Colonoscopy with biopsy. ANESTHESIA: Per Dr. Stephen. INSTRUMENT: Olympus adult flexible colonoscope. INDICATION: Colitis. REASON FOR PROCEDURE: The procedure, risks, benefits, and possible consequences, including hemorrhage, aspiration, perforation and infection, and alternative treatments, were explained to the patient/legal guardian by Dr. Matthias Collins and the patient/legal guardian understood and accepted these risks. PROCEDURE IN DETAIL: After informed consent was obtained and the patient was adequately sedated, first rectal exam was performed, which is positive for internal hemorrhoids. Then, the scope was advanced from the rectum into the cecum documented by appendix orifice, ileocecal valve and right upper quadrant palpation. Then, scope was advanced to the terminal ileum. Quality of prep was very good. The patient had a mild patchy diffuse colitis, very mild, nonspecific, possibly resolving, infectious. Biopsy from transverse colon colitis was obtained for diagnosis. There was no other pathology seen in this colonoscopy examination. Retroflexion of rectum showed evidence of internal hemorrhoids. SUMMARY OF FINDINGS: 1. Patchy colitis, status post biopsy for diagnosis, most probably nonsignificant. 2. Internal hemorrhoids. RECOMMENDATIONS: 1. Resume diet. 2. Follow pathology. I want to thank Dr. Jamil for this kind referral. Matthias Collins M.D. DR: EYAL JOB#: [id number] CC:
--- NOTE | 2020-04-15 11:24 | NUR ---
NURSE NOTES: Pt came back from procedure. pt is stable and passing gas after colonoscopy.
--- NOTE | 2020-04-15 13:56 | General Progress Note ---
Subjective Allergies: Coded Allergies: No Known Allergies (Unverified , 04/12/20) Objective Last 24 Hour Vital Signs Date Time Temp Pulse Resp B/P (MAP) Pulse Ox O2 Delivery O2 Flow Rate FiO2 04/15/20 12:00 97.7 70 20 122/78 (93) 95 04/15/20 11:00 97.8 87 16 111/77 99 Room Air 04/15/20 10:58 82 17 119/85 100 Room Air 04/15/20 10:54 71 18 99 04/15/20 10:52 70 18 99 04/15/20 10:48 86 18 118/80 97 Simple Mask 6 04/15/20 10:43 76 19 117/77 99 Simple Mask 6 04/15/20 10:38 97.9 67 17 120/79 97 Simple Mask 6 04/15/20 09:00 Room Air 04/15/20 08:00 96.1 71 17 136/66 (89) 94 04/15/20 08:00 100 04/15/20 04:00 96.1 81 17 109/61 (77) 94 04/15/20 04:00 66 04/15/20 00:00 98.4 76 17 118/77 (91) 96 04/15/20 00:00 99 04/14/20 21:00 Room Air 04/14/20 20:00 96.1 79 18 124/62 (82) 96 04/14/20 20:00 84 04/14/20 16:00 96.4 98 18 100/58 (72) 98 04/14/20 15:37 85 Intake and Output 04/14/20 04/15/20 19:00 07:00 Intake Total 1850 ml 775 ml Balance 1850 ml 775 ml Intake Oral 850 ml IV Total 1000 ml 775 ml # Voids 2 3 # Bowel Movements 1 Laboratory Tests 04/15/20 06:08: White Blood Count 3.3L, Red Blood Count 4.46, Hemoglobin 14.7, Hematocrit 43.3, Mean Corpuscular Volume 97, Mean Corpuscular Hemoglobin 32.9H, Mean Corpuscular Hemoglobin Concent 33.9, Red Cell Distribution Width 12.2, Platelet Count 161, Mean Platelet Volume 6.1L, Neutrophils (%) (Auto) , Lymphocytes (%) (Auto) , Monocytes (%) (Auto) , Eosinophils (%) (Auto) , Basophils (%) (Auto) , Diff erential Total Cells Counted 100, Neutrophils % (Manual) 44L, Lymphocytes % (Manual) 34, Monocytes % (Manual) 19H, Eosinophils % (Manual) 1, Basophils % (Manual) 0, Band Neutrophils 2, Platelet Estimate Adequate, Platelet Morphology Normal, Red Blood Cell Morphology Normal, Sodium Level 142, Potassium Level 3.2L , Chloride Level 106, Carbon Dioxide Level 28, Anion Gap 8, Blood Urea Nitrogen 4L, Creatinine 0.7, Estimat Glomerular Filtration Rate > 60, Glucose Level 111H, Calcium Level 8.9, Total Bilirubin 0.7, Aspartate Amino Transf (AST/SGOT) 45H, Alanine Aminotransferase (ALT/SGPT) 38, Alkaline Phosphatase 50, Total Protein 7.0, Albumin 3.2L, Globulin 3.8, Albumin/Globulin Ratio 0.8L Height (Feet): 4 Height (Inches): 4.00 Weight (Pounds): 84 Assessment/Plan Status: stable Assessment/Plan: S: I am ok O: seems comfortable, minimal diarrhea PHYSICAL EXAMINATION:HEAD AND NECK: Atraumatic and normocephalic. CHEST: Clear to auscultation.HEART: S1 and S2. Regular rate and rhythm. ABDOMEN: Tenderness on deep palpation. MUSCULOSKELETAL: No gross lateralized motor deficit. NEUROLOGIC: The patient is awake, alert, oriented x3. LABORATORY DATA: Dated April 15, reviewed ASSESSMENT AND PLAN: 1. Subacute colitis with prior history of IBS/IBD. 2. Thrombocytopenia. 3. Paroxysmal atrial fibrillation. 4. leukopenia. 5. GI and DVT prophylaxis. Colonoscopy per GI current abx Once clear by GI september fu as Flako Glasgow MD Apr 15, 2020 13:56
--- NOTE | 2020-04-15 15:07 | Infectious Diseases Prog Note ---
Assessment/Plan Problems: (1) S/P ablation of atrial fibrillation Assessment & Plan: With chills which resolved, and no evidence of sepsis with negative blood culture , monitor clinically off antibiotics (2) Chills Assessment & Plan: no evidence of COVID 19 viral infection , and negative PCR test for COVID 19 , discontinue enhanced droplets isolation (3) Diarrhea Assessment & Plan: not Bacterial related with negative stool culture, and C diff toxin , we will discontinue metronidazole (4) Weakness Assessment & Plan: suspect due to the above , improved Subjective Constitutional: Reports: no symptoms HEENT: Reports: no symptoms Respiratory: Reports: no symptoms Breasts: Reports: no symptoms Cardiovascular: Reports: no symptoms Gastrointestinal/Abdominal: Reports: no symptoms Genitourinary: Reports: no symptoms Neurologic: Reports: no symptoms Psychiatric: Reports: no symptoms Skin: Reports: no symptoms Endocrine: Reports: no symptoms Hematologic: Reports: no symptoms Musculoskeletal: Reports: no symptoms Allergies: Coded Allergies: No Known Allergies (Unverified , 04/12/20) she was feeling better with no fever or chills , and no diarrhea , no cough or SOB, had colonoscopy today Objective Last 24 Hour Vital Signs Date Time Temp Pulse Resp B/P (MAP) Pulse Ox O2 Delivery O2 Flow Rate FiO2 04/15/20 12:00 92 04/15/20 12:00 97.7 70 20 122/78 (93) 95 04/15/20 11:00 97.8 87 16 111/77 99 Room Air 04/15/20 10:58 82 17 119/85 100 Room Air 04/15/20 10:54 71 18 99 04/15/20 10:52 70 18 99 04/15/20 10:48 86 18 118/80 97 Simple Mask 6 04/15/20 10:43 76 19 117/77 99 Simple Mask 6 04/15/20 10:38 97.9 67 17 120/79 97 Simple Mask 6 04/15/20 09:00 Room Air 04/15/20 08:00 96.1 71 17 136/66 (89) 94 04/15/20 08:00 100 04/15/20 04:00 96.1 81 17 109/61 (77) 94 04/15/20 04:00 66 04/15/20 00:00 98.4 76 17 118/77 (91) 96 04/15/20 00:00 99 04/14/20 21:00 Room Air 04/14/20 20:00 96.1 79 18 124/62 (82) 96 04/14/20 20:00 84 04/14/20 16:00 96.4 98 18 100/58 (72) 98 04/14/20 15:37 85 Height (Feet): 4 Height (Inches): 4.00 Weight (Pounds): 84 General Appearance: WD/WN, no acute distress HEENT: normocephalic, atraumatic, anicteric, mucous membranes moist, PERRL Respiratory/Chest: chest wall non-tender, lungs clear, normal breath sounds, no respiratory distress, no accessory muscle use Cardiovascular: normal peripheral pulses, normal rate, regular rhythm, no gallop/murmur, no JVD Abdomen: normal bowel sounds, soft, non tender, no organomegaly, non distended, no mass, no scars Genitourinary: normal external genitalia Extremities: no cyanosis, no clubbing Skin: no rash, no lesions, no ulcers Neurologic/Psychiatric: bilingual patient support caseworker II-XII grossly normal, no motor/sensory deficits, alert, oriented x 3, responsive Lymphatic: no neck adenopathy, no groin adenopathy Musculoskeletal: normal muscle bulk, no effusion Microbiology Date/Time Source Procedure Growth Status 04/13/20 10:23 Stool Stool Culture - Preliminary NORMAL FECAL GLENIS. Resulted 04/13/20 05:10 Nasopharynx Coronavirus COVID-19 PCR ([facility]) - Final Complete Laboratory Tests Test 04/15/20 06:08 White Blood Count 3.3 K/UL (4.8-10.8) L Red Blood Count 4.46 M/UL (4.20-5.40) Hemoglobin 14.7 G/DL (12.0-16.0) Hematocrit 43.3 % (37.0-47.0) Mean Corpuscular Volume 97 FL (80-99) Mean Corpuscular Hemoglobin 32.9 PG (27.0-31.0) H Mean Corpuscular Hemoglobin Concent 33.9 G/DL (32.0-36.0) Red Cell Distribution Width 12.2 % (11.6-14.8) Platelet Count 161 K/UL (150-450) Mean Platelet Volume 6.1 FL (6.5-10.1) L Neutrophils (%) (Auto) % (45.0-75.0) Lymphocytes (%) (Auto) % (20.0-45.0) Monocytes (%) (Auto) % (1.0-10.0) Eosinophils (%) (Auto) % (0.0-3.0) Basophils (%) (Auto) % (0.0-2.0) Differential Total Cells Counted 100 Neutrophils % (Manual) 44 % (45-75) L Lymphocytes % (Manual) 34 % (20-45) Monocytes % (Manual) 19 % (1-10) H Eosinophils % (Manual) 1 % (0-3) Basophils % (Manual) 0 % (0-2) Band Neutrophils 2 % (0-8) Platelet Estimate Adequate Platelet Morphology Normal Red Blood Cell Morphology Normal Sodium Level 142 MMOL/L (136-145) Potassium Level 3.2 MMOL/L (3.5-5.1) L Chloride Level 106 MMOL/L (98-107) Carbon Dioxide Level 28 MMOL/L (21-32) Anion Gap 8 mmol/L (5-15) Blood Urea Nitrogen 4 mg/dL (7-18) L Creatinine 0.7 MG/DL (0.55-1.30) Estimat Glomerular Filtration Rate > 60 mL/min (>60) Glucose Level 111 MG/DL (74-106) H Calcium Level 8.9 MG/DL (8.5-10.1) Total Bilirubin 0.7 MG/DL (0.2-1.0) Aspartate Amino Transf (AST/SGOT) 45 U/L (15-37) H Alanine Aminotransferase (ALT/SGPT) 38 U/L (12-78) Alkaline Phosphatase 50 U/L (46-116) Total Protein 7.0 G/DL (6.4-8.2) Albumin 3.2 G/DL (3.4-5.0) L Globulin 3.8 g/dL Albumin/Globulin Ratio 0.8 (1.0-2.7) L Current Medications Medications (Trade) Dose Ordered Sig/Marquis Route PRN Reason Start Time Stop Time Status Last Admin Dose Admin Dextrose/ Electrolytes 1,000 ml @ 75 mls/hr [id number] IV 04/13/20 16:00 05/13/20 15:59 04/15/20 08:35 Furosemide (Lasix) 20 mg DAILY IV 04/14/20 10:00 05/14/20 09:59 04/15/20 08:36 Metronidazole 100 ml @ 100 mls/hr Q8HR IVPB 04/12/20 20:00 04/19/20 19:59 04/15/20 13:48 Morphine Sulfate (Morphine Sulfate) 1 mg Q6H PRN IVP For Pain 4-10 04/12/20 18:00 04/19/20 17:59 04/13/20 04:56 Ondansetron HCl (Zofran) 4 mg Q6H PRN IVP Nausea & Vomiting 04/12/20 17:45 05/12/20 17:44 04/13/20 20:40 Pantoprazole (Protonix) 40 mg DAILY IVP 04/13/20 09:00 05/13/20 08:59 04/15/20 08:35 Rivaroxaban (Xarelto) 20 mg QPM ORAL 04/12/20 18:00 07/11/20 17:59 04/13/20 16:29 Brandt Blanco M.D. Apr 15, 2020 15:07
[2020-04-15] MEDS: Xarelto 10mg tab ORAL SCH (15:45)
--- NOTE | 2020-04-16 08:58 | Discharge Summary ---
Discharge Summary Discharge Summary _ DATE OF ADMISSION: 04/12/2020 DATE OF DISCHARGE: 04/15/2020 DISCHARGED BY: Dr Jamil REASON FOR ADMISSION: 65 years old female with past medical history of atrial fibrillation, status post recent ablation, on Xarelto, presented to emergency department complaining of generalized weakness, abdominal pain, lower back pain and watery diarrhea. Symptoms started about a week ago. Patient denied fevers, but reported chills. She denied any chest pain, shortness of breath or cough. She reported nausea, but denied vomiting. No dysuria or hematuria . Patient was sent by her primary care provider for further evaluation and management. Upon evaluation vital signs were stable. Laboratory work-up revealed WBC 4.6, stable hemoglobin and hematocrit, platelet count 143 . Stable electrolytes and renal parameters. Glucose 90. Lactic acid 0.8. AST 37, ALT 38 Troponin negative , pro BNP 1047. EKG revealed sinus rhythm with PVC, incomplete right bundle branch block, Albumin 3.7. Urinalysis revealed no evidence of UTI. Rapid COVID-19 was negative. CXR showed pulmonary vascular congestion and possible mild perihilar pulmonary edema. Cardiomegaly. CT scan of the abdomen and pelvis revealed mild diffuse colonic wall thickening, concerning for colitis. No adjacent inflammatory stranding, free air, or fluid collection. No bowel obstruction. Cardiomegaly. Subtle peripheral hazy densities in bilateral lower lobe, nonspecific and may represent mild pulmonary interstitial edema or pneumonitis. In emergency department patient received Lasix, aspirin, IV fluids , antibiotic and subsequently admitted for further management. CONSULTANTS: equipment scheduler Dr. Russell pulmonary Dr. Warren ID specialist Dr. Blanco GI specialist Dr. Collins [facility] COURSE: Patient admitted to telemetry floor. Patient initially was on isolation for possible Covid. Patient started on empiric antibiotic as per ID specialist recommendation. Stool for C. difficile was negative. Stool culture was negative. Repeated Covid by PCR was negative as well. Blood cultures were negative. Initially started antibiotic/Flagyl stopped. Isolation discontinued. Pain management was addressed as needed. Symptomatic treatment provided. Earth Boring Machine Operator followed. Echocardiogram revealed preserved ejection fraction of 55% with mild left ventricular hypertrophy. No evidence of wall motion abnormality. Serial troponin were negative. EKG revealed sinus rhythm, no acute ischemic changes. Diuresis with IV Lasix provided with close monitoring of volumes and cardiorenal parameters. Per equipment scheduler, patient had acute on chronic diastolic heart failure. Anticoagulation with Xarelto for paroxysmal atrial fibrillation continued ( was hold prior to colonoscopy) . Heart rate was controlled. Patient recently undergone ablation. Potassium was replaced. Supplemental oxygen provided to keep pulse oximetry above 92%. Pulse oximetry remained stable on room air. Patient undergone colonoscopy with biopsy on 04/15. Procedure revealed patchy colitis, status post biopsy. Diet was resumed. GI prophylaxis provided. Patient to follow-up with GI as outpatient for biopsy results. At the time of this dictation biopsy result still pending. Counts were closely monitored. Thrombocytopenia resolved. Patient remained leukopenic. Monitor counts as outpatient and further work-up as needed. Patient clinically stabilize and was ready for discharge home. FINAL DIAGNOSES: Congestive heart failure, acute on chronic, diastolic Pulmonary edema Colitis with prior history of IBS/ IBD Paroxysmal atrial fibrillation, status post recent ablation Chronic anticoagulation Hypokalemia Leukopenia Thrombocytopenia-resolved DISCHARGE MEDICATIONS: See Medication Reconciliation list. DISCHARGE INSTRUCTIONS: Patient was discharged home. Follow-up with a primary care provider in 1 week. Follow-up with GI specialist with biopsy results and further management I have been assigned to dictate discharge summary for this account. I was not involved in the patient's management. Yesenia Rios NP Apr 16, 2020 08:58
--- NOTE | 2020-04-17 15:32 | Cardiology Report ---
APPROVED REPORT EXAM: Two-dimensional and M-mode echocardiogram with Doppler and color Doppler. INDICATION Congestive Heart Failure M-Mode DIMENSIONS IVSd1.3 (0.7-1.1cm)Left Atrium (MM)3.0 (1.6-4.0cm) LVDd2.8 (3.5-5.6cm)Aortic Root2.1 (2.0-3.7cm) PWd0.8 (0.7-1.1cm)Aortic Cusp Exc.1.5 (1.5-2.0cm) IVSs1.5 cmEPSS0.3 (>1.0cm) LVDs2.1 (2.5-4.0cm) PWs1.1 cm <Conclusion> Normal left ventricular chamber size with borderline systolic function and wall motion likely due to atrial fibrillation. Left ventricular ejection fraction is estimated at -45%. Mild left ventricular hypertrophy. Trivial posterior pericardial effusion. Moderate left atrial chamber enlargement. Mild right atrial and right ventricular chamber enlargement. Mild focal aortic valve sclerosis with adequate cusp excursion. Mildly thickened mitral valve leaflets with normal excursion. Mild mitral annulus and aortic root calcification. Normal pulmonic valve structure. Normal tricuspid valve structure. IVC is normal in size with physiological collapse. A color flow and spectral Doppler study was performed and revealed: No aortic regurgitation. No mitral regurgitation. Mitral inflow velocities could not be determined due to atrila fibrillation. Mild tricuspid regurgitation. Tricuspid systolic velocities suggests peak right ventricular systolic pressure of 27 mmHg. Trace pulmonic regurgitation present.
--- NOTE | 2020-04-17 16:54 | Cardiology Report ---
APPROVED REPORT EKG Measurement Heart [id number] <Conclusion> Wandering pacemaker Incomplete right bundle branch block Possible Right ventricular hypertrophy T wave abnormality, consider inferolateral ischemia Abnormal ECG
--- NOTE | 2020-04-17 17:00 | Cardiology Report ---
APPROVED REPORT EKG Measurement Heart [id number] <Conclusion> Sinus rhythm with premature supraventricular complexes Rightward axis Low voltage QRS Incomplete right bundle branch block ST & T wave abnormality, consider inferior ischemia ST & T wave abnormality, consider anterolateral ischemia Abnormal ECG
== END 2020-04-15 17:10 | disposition home or self-care (01) | DRG 391 ==
LOC: EMR 11:58 → 2E 14:07 → EDBEDREQ 14:57 → 2E 20:59
PROC: 0DBL8ZX Excision of Transverse Colon, Via Natural or Artificial Opening Endoscopic, Diagnostic (ICD-10-PCS; principal; 2020-04-15 10:16)
DX: K52.9 Noninfective gastroenteritis and colitis, unspecified (principal); I50.33 Acute on chronic diastolic (congestive) heart failure; E87.1 Hypo-osmolality and hyponatremia; Z20.828 Contact with and (suspected) exposure to other viral communicable diseases; R68.83 Chills (without fever); E87.6 Hypokalemia; Z87.19 Personal history of other diseases of the digestive system; D69.6 Thrombocytopenia, unspecified; Z79.01 Long term (current) use of anticoagulants; I48.0 Paroxysmal atrial fibrillation; I45.10 Unspecified right bundle-branch block; K64.8 Other hemorrhoids; R53.1 Weakness
CPT/HCPCS: 36415; 71045; 74176; 80053; 81003; 82248; 82533; 83605; 83735; 83880; 84484; 85007; 85025; 85610; 85730; 87040; 87045; 87324; 93005; 93306; 94003; 94150; 96361; 96374; 96375; 99285; J2405; J7030; U0002